=== PATIENT | female | born 1960 | race Caucasian/White ===

== ENCOUNTER → 2017-12-23 09:11 | Outpatient (CLI) | payer OTHER, MEDICARE, SELFPAY | PROVIDERS: Family Provider Family Medicine; PCP Family Medicine; Visit Provider Family Medicine | DX: M85.89 Other specified disorders of bone density and structure, multiple sites (principal) ==

== ENCOUNTER → 2018-02-23 10:23 | Outpatient (CLI) | payer OTHER, MEDICARE, SELFPAY ==
[2018-02-23 11:40] LABS: Calcium 9.7 mg/dL (8.5-10.1); Free T4 (Free Thyroxine) 1.41 ng/dl (0.76-1.46)
== END ==
PROVIDERS: Visit Provider Otolaryngology
DX: E03.0 Congenital hypothyroidism with diffuse goiter (principal)
CPT/HCPCS: 36415; 82310; 84439; 84443

== ENCOUNTER → 2018-04-02 08:08 | Outpatient (CLI) | payer OTHER, MEDICARE, SELFPAY ==
--- NOTE | 2018-04-02 08:10 | MM_ITS ---
MM Dig screening mamm BI w/CAD ORDERING PHYSICIAN : Bartolo Anne MD PATIENT AGE: 57 years GENDER: Female COMPARISON: January 2017, May INDICATION: ITS.REASON: Routine Mammogram Screening No hormones. No new complaints noncontributory family history TECHNIQUE: Standard CC and MLO images were obtained. R2 CAD reviewed. Additional nipple profile cc view and left breast MLO view included FINDINGS: Generalized fatty replacement Low-density breast bilaterally with no dominant mass nor suspicious calcification. No significant change since previous studies . No dominant mass. No suspicious calcification. No architectural distortion Bilateral follow-up in one year adequate. CAD computer review highlights no areas of concern either . IMPRESSION: Negative mammogram. Stable Low-density breast. Generalized fatty replacement with no new areas of concern BI-RADS Category: 1 Negative RECOMMENDED FOLLOW-UP: 1YR 1 YEAR FOLLOW-UP (A letter has been sent to the patient regarding results of the study.)
== END ==
PROVIDERS: Family Provider Family Medicine; PCP Family Medicine; Visit Provider Nurse Practitioner Obstetrics & Gynecology
DX: Z12.31 Encounter for screening mammogram for malignant neoplasm of breast (principal)
CPT/HCPCS: 77067

== ENCOUNTER → 2018-06-08 11:27 | Outpatient (POV) | payer OTHER, MEDICARE, SELFPAY | PROVIDERS: Visit Provider Nurse Practitioner Acute Care | DX: Z00.00 Encounter for general adult medical examination without abnormal findings (principal) ==

== ENCOUNTER → 2019-01-29 09:12 | Outpatient (CLI) | payer OTHER, MEDICARE, SELFPAY ==
--- NOTE | 2019-01-29 09:17 | NM_ITS ---
NM hepatobiliary w pharm HISTORY: ITS.REASON: RUQ PAIN ORDERING PHYSICIAN: ANAIS Gupta PATIENT AGE: 58 years COMPARISON: None DOSE: 8.72 MCI TC Choletec 3.1 MCG of cck FINDINGS: Homogeneous activity is present within the hepatic parenchyma. Activity is present in the gallbladder by 15 minutes. Activity is present in the small bowel by 10 minutes. The gallbladder ejection fraction is calculated to be 92% The patient did not report pain or other symptoms during CCK infusion. IMPRESSION: Unremarkable hepatobiliary scan and gallbladder ejection fraction. No evidence of common or cystic duct obstruction with normal gallbladder ejection fraction
--- NOTE | 2019-01-29 10:12 | HMH.ITSHM ---
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 [] metformin losartan crestor vit d levothyroxine diclofenac saxagliptin
== END ==
PROVIDERS: PCP Family Medicine; Visit Provider Physician Assistant
DX: R10.11 Right upper quadrant pain (principal)
CPT/HCPCS: 78227; A9537; J2805

== ENCOUNTER → 2019-02-02 15:40 | Observation (INO) ==
--- NOTE | 2019-02-01 13:52 | Progress Note ---
Internal Medicine - PN: Subj *Date: 02/01/19 *Time: 13:56 Interval history: Ms Galan is a 58 year old female with a history of DM, HTN, OA and obesity who presented to the office of [facility] today with severe abdominal pain, nausea and vomiting. She reported that the pain has been ongoing for 3 weeks. The pain extends across her entire abdomen. She has been on Zofran and levsin withut any relief. Her bowels did move this AM and she describes them as being loose. She has noted no blood in the emesis or stools. She went to the ER on 01/22/2019 and 01/25/2019 and received fluid boluses and IV Reglan, Pepcid, Toradol, and Zofran. She felt better after these visits for several hours but then the symptoms persisted. She has had the following imaging: CT of the abdomen IMPRESSION: Possible mild hepatic cirrhosis and there is mild splenomegaly. Uncomplicated cholelithiasis. No acute gallbladder inflammation however there could be some gallbladder sludge. Lumbar spine chronic intervertebral osteochondrosis and facet arthrosis with multiple levels of acquired central canal stenosis. GB US IMPRESSION: Possible small gallbladder polyp or mild sludge. No definite stones or acute inflammation. HIDA scan IMPRESSION: Unremarkable hepatobiliary scan and gallbladder ejection fraction. No evidence of common or cystic duct obstruction with normal gallbladder ejection fraction She has been unable to eat and has tried to continue with an adequate fluid intake. She has retained only the water. She has lost 9# in the past week. She was given a levsin in the office without improvement. She was also seen by Dr. Franco and the decision was made to admit her having failed OP treatent for IVF, GI consult and management of her symptoms. See H&P sent with patient from [facility] . Exam Vital signs and Labs for Last 24 Hours: Temp Pulse Resp BP Pulse Ox 98.0 F 73 18 137/63 100 02/01/19 13:30 02/01/19 13:30 02/01/19 13:30 02/01/19 13:30 02/01/19 13:30 I & O for Last 24 hours: Intake & Output 01/30/19 01/31/19 02/01/19 02/02/19 11:59 11:59 11:59 11:59 Weight 319 lb 9 oz Assessment and Plan (1) Acute abdominal pain Current visit: Yes Status: Acute Category: Medical Code(s): R10.9 - Unspecified abdominal pain (2) Nausea and vomiting Current visit: Yes Status: Acute Category: Medical Code(s): R11.2 - Nausea with vomiting, unspecified (3) Diabetes mellitus Current visit: Yes Status: Chronic Category: Medical Code(s): E11.9 - Type 2 diabetes mellitus without complications (4) HTN (hypertension) Current visit: Yes Status: Chronic Category: Medical Code(s): I10 - Essential (primary) hypertension (5) Hypothyroidism Current visit: Yes Status: Chronic Category: Medical Code(s): E03.9 - Hypothyroidism, unspecified - Assessment and plan all Dx Assessment and Plan for all problems:: IVF, GI consult, pain and nausea management. Will place pt on FSBS ac and HS but will not add sliding scale. Pt states she will not take insulin.
[2019-02-01 13:56] LABS: Albumin Level 3.8 gm/dL (3.4-5.0); Albumin/Globulin Ratio 0.8 (1.1-1.8); Anion Gap 16.7 mEq/L (5-15); Bilirubin,Total 1.1 mg/dL (0.2-1.0); Calcium 10.6 mg/dL (8.5-10.1); Globulin 4.7 gm/dl (1.3-3.2); Total Protein,Serum 8.5 gm/dL (6.4-8.2)
[2019-02-01 13:59] LABS: Basophils # 0.1 K/mm3 (0-0.2); Basophils % 0.8 % (0.1-2.0); Eosinophils # 0.2 K/mm3 (0.0-0.4); Eosinophils % 2.1 % (0.1-12.0); Hematocrit 44.8 % (37.0-47.0); Hemoglobin 14.4 g/dL (12.2-16.2); Lymphocytes # 2.2 K/mm3 (0.7-4.5); Lymphocytes % 30.4 % (10-50); Mean Platelet Volume 8.1 fl (7.4-10.4); Monocytes # 0.5 K/mm3 (0.1-1.0); Monocytes % 6.6 % (1.7-9.3); Neutrophils # 4.3 K/mm3 (1.8-7.8); Neutrophils % 60.2 % (37.0-80.0); Platelet Count 253 K/mm3 (142-424); Red Blood Count 4.62 M/mm3 (4.20-5.40); Red Cell Distribution Width 12.7 % (11.5-17.5); White Blood Count 7.1 K/mm3 (4.8-10.8)
[2019-02-01 14:26] LABS: Creatine Kinase 51 U/L (26-192)
--- NOTE | 2019-02-01 14:48 | Procedure Note ---
[facility] Procedure Note Procedure Note:: S: Mrs. Degroot is a 58-year-old female who complains of epigastric abdominal pain and discomfort that radiates down and across the abdomen. She has had moderate belching and some bloating. She reports some nausea and early satiety. This began 3 weeks ago. Formerly she had more moderate gassiness. The patient does report some loose stools that alternate with regular stools. She reports no heartburn, reflux or dysphagia. She has had no melena or hematochezia. She reports no heartburn or reflux. The patient did have a colonoscopy with me in August 2018. At that time, she had no abdominal pain or complaints. She did have some rectal bleeding that was hemorrhoidal. Her colonoscopy revealed no colon polyps but did show pandiverticulosis. The patient did have imaging studies and labs here at [facility]. Her CAT scan showed mild splenomegaly and mild hepatic cirrhosis. There was no gallbladder inflammation but possible gallstones. The patient's ultrasound showed a small gallbladder polyp or mild sludge. The patient subsequent HIDA scan was unremarkable with a normal gallbladder ejection fraction and no evidence of cystic or common bile duct obstruction. The patient's labs showed normal liver chemistries and normal pancreatic chemistries. O: Physical Examination: Gen.: The patient is a moderately obese female (BMI 50) individual in no acute distress HEENT: Normocephalic/atraumatic extraocular movements are intact anicteric Neck: Supple no lymphadenopathy Chest: Clear to auscultation Cardiovascular: Regular rate and rhythm Abdomen: Normoactive bowel sounds, soft, mild distention with tenderness in the epigastrium and bilateral lower quadrants, some palpable gas and stool present, no palpable ascites but some hepatosplenomegaly present Extremities: 1+ edema Labs AST 34, ALT 40, alkaline phosphatase 98, total bilirubin 1.1, amylase 23, lipase 182, creatinine 2.05 CAT scan with fatty liver and early cirrhosis without evidence of portal hypertension A/P: 1. Epigastric pain with dyspepsia. Certainly dyspepsia is accompanied with belching, fullness, nausea and early satiety. I am going to recommend an EGD within the next 5 to 7 days with me. I would like to go ahead and treat the dyspepsia with Reglan (promotility) and buspirone (treatment for visceral sensitivity). I will also place her on omeprazole. This does not appear to be gallbladder or biliary in origin and most likely represents nonulcer dyspepsia. I assume that she may have some gastropathy and some bowel fermentation driving this process. We have discussed dietary measures to follow. 2. Early cirrhosis. The patient's transaminases/alkaline phosphatase are normal but she does have a mildly elevated total bilirubin. She appears to be well compensated. I do feel that the etiology is most likely N[place]. She does have an outpatient appointment with Aure CUTLER in 2 weeks (February 15, 2019). I am going to obtain viral hepatitis serologies, autoimmune serologies, alpha-1 antitrypsin level, iron studies, ammonia level and hepatic fibrotic markers. The EGD upcoming will also evaluate for evidence of portal hypertension and esophageal varices.
[2019-02-02 07:18] LABS: Albumin/Globulin Ratio 0.8 (1.1-1.8); Anion Gap 12.4 mEq/L (5-15); Bilirubin,Total 0.9 mg/dL (0.2-1.0); Globulin 3.8 gm/dl (1.3-3.2); Total Protein,Serum 6.8 gm/dL (6.4-8.2)
--- NOTE | 2019-02-02 07:39 | Pharmacy Consult Notes ---
[facility] Pharmacy VTE Monitoring - Patient Demographics Admission date: 02/01/19 Report Date: 02/02/19 Time: 07:39 Allergies/Adverse Reactions: Patient Allergies ciprofloxacin Allergy (Mild, Verified 01/22/19 05:35) doxycycline [DOXYCYCLINE] Allergy (Unknown, Verified 01/22/19 05:35) Height: 1.7 m Weight: 146.709 kg Patient Problems: Current Active Problems (Updated 02/01/19 @ 14:12 by Gladis Urias APRN) Acute abdominal pain (Acute) Diabetes mellitus (Chronic) HTN (hypertension) (Chronic) Hypothyroidism (Chronic) Nausea and vomiting (Acute) - VTE Risk Labs: VTE Related Lab Results Hgb 14.4 g/dL (12.2-16.2) 02/01/19 13:30 Hct 44.8 % (37.0-47.0) 02/01/19 13:30 Plt Count 253 K/mm3 (142-424) 02/01/19 13:30 BUN 20 mg/dL (7-18) H 02/01/19 13:30 Creatinine 2.05 mg/dL (0.55-1.02) H 02/01/19 13:30 Estimated Creat Clear 30 mL/min (50-200) 02/01/19 13:30 VTE Score: 5 VTE Risk Level: Low Risk - Prophylaxis VTE Prophylaxis Ordered?: Yes Types of VTE Prophylaxis: TEDS Knee High Location of Applied Device: Bilateral Lower Extremeties - VTE Diagnosis Confirmed Treatment or plan recommended: Continue Current Treatment
[2019-02-02 07:42] LABS: Calcium 9.2 mg/dL (8.5-10.1)
--- NOTE | 2019-02-02 08:02 | Progress Note ---
Internal Medicine - PN: Subj *Date: 02/02/19 *Time: 07:59 Interval history: Patient feels so much better today. She has not had any more abdominal pain since 5 PM yesterday after starting the new meds as per Dr. Chavarria. She denies nausea and vomiting. She did clear liquids without any difficulty this morning. She is hungry and would like some food. Bowels have not moved. She is voiding QS. She did sleep during the night. She ambulates in the room without difficulty. She denies chest pain and shortness of breath. Laboratory Tests 02/02/19 06:05 Sodium 143 Potassium 3.4 L Chloride 107 Carbon Dioxide 27 Anion Gap 12.4 BUN 18 Creatinine 1.69 H Estimated GFR 31 L Glucose 128 H Calcium 9.2 D Total Bilirubin 0.9 AST 27 ALT 33 Alkaline Phosphatase 78 Exam Vital signs and Labs for Last 24 Hours: Temp Pulse Resp BP Pulse Ox 97.7 F 62 16 130/70 100 02/02/19 07:51 02/02/19 07:51 02/02/19 07:51 02/02/19 07:51 02/02/19 07:51 Laboratory Results - last 24 hr 02/01/19 13:30: WBC 7.1, RBC 4.62, Hgb 14.4, Hct 44.8, MCV 97.0, MCH 31.1, MCHC 32.0, RDW 12.7, Plt Count 253, MPV 8.1, Neut % (Auto) 60.2, Lymph % (Auto) 30.4, [place] % (Auto) 6.6, Eos % (Auto) 2.1, Baso % (Auto) 0.8, Neut # (Auto) 4.3, Lymph # (Auto) 2.2, [place] # (Auto) 0.5, Eos # (Auto) 0.2, Baso # (Auto) 0.1 02/01/19 13:30: Sodium 141, Potassium 3.7, Chloride 102, Carbon Dioxide 26, Anion Gap 16.7 H, BUN 20 H, Creatinine 2.05 H, Estimated Creat Clear 30, Estimated GFR 25 L, Est GFR ( Amer) 30 L, Glucose 147 H, Calcium 10.6 H, Total Bilirubin 1.1 H, AST 34, ALT 40, Alkaline Phosphatase 98, Total Protein 8.5 H, Albumin 3.8, Globulin 4.7 H, Albumin/Globulin Ratio 0.8 L 02/01/19 13:30: Total Creatine Kinase 51, CK-MB (CK-2) < 0.5, CK-MB (CK-2) Rel Index 1.0, Troponin I < 0.02 02/01/19 16:00: Ammonia < 10 L 02/01/19 16:00: Ferritin 491 H 02/01/19 16:30: POC Glucose 126 H 02/01/19 20:53: POC Glucose 96 02/02/19 06:02: POC Glucose 111 H 02/02/19 06:05: Sodium 143, Potassium 3.4 L, Chloride 107, Carbon Dioxide 27, Anion Gap 12.4, BUN 18, Creatinine 1.69 H, Estimated Creat Clear 36, Estimated GFR 31 L, Est GFR ( Amer) 38 L D, Glucose 128 H, Calcium 9.2 D, Total Bilirubin 0.9, AST 27, ALT 33, Alkaline Phosphatase 78, Total Protein 6.8, Albumin 3.0 L D, Globulin 3.8 H, Albumin/Globulin Ratio 0.8 L I & O for Last 24 hours: Intake & Output 01/30/19 01/31/19 02/01/19 02/02/19 11:59 11:59 11:59 11:59 Intake Total 1990 / 1990 Output Total 575 / 575 Balance 1416 / 1416 Weight 323 lb 7 oz Radiology Reports for the Last 24 Hours: 02/01/2019 acute abdomen series IMPRESSION: Chronic changes, no acute finding. - Constitutional no acute distress Comments: Sitting up in the chair and has completed her breakfast of clear liquids. She appears quite comfortable. - *Routine Respiratory Exam Present: CTA bilaterally (Anteriorly and posteriorly) - *Routine Cardiovascular Exam Present: RRR - *Routine Abdominal Exam Present: soft, normoactive bowel sounds, tenderness (Mild tenderness in all lower quadrants). Absent: distended, guarding - *Routine Extremities Exam Present: edema (Trace bilateral). Absent: calf tenderness - *Routine Neurological Exam Present: alert, oriented X3 Assessment and Plan (1) Acute abdominal pain Current visit: Yes Status: Acute Category: Medical Code(s): R10.9 - Unspecified abdominal pain (2) Nausea and vomiting Current visit: Yes Status: Acute Category: Medical Code(s): R11.2 - Nausea with vomiting, unspecified (3) Diabetes mellitus Current visit: Yes Status: Chronic Category: Medical Code(s): E11.9 - Type 2 diabetes mellitus without complications (4) HTN (hypertension) Current visit: Yes Status: Chronic Category: Medical Code(s): I10 - Essential (primary) hypertension (5) Hypothyroidism Current visit: Yes Status: Chronic Category: Medical Code(s): E03.9 - Hypothyroidism, unspecified
--- NOTE | 2019-02-02 22:04 | Discharge Summary ---
General - General Admission date:: 02/01/19 Discharge date: 02/02/19 HPI HPI: Ms Galan is a 58 year old female with a history of DM, HTN, OA and obesity who presented to the office of [facility] with severe abdominal pain, nausea and vomiting. She reported that the pain has been ongoing for 3 weeks. The pain extended across her entire abdomen. She had been on Zofran and levsin without any relief. Her bowels did move this AM and she described them as being loose. She had noted no blood in the emesis or stools. She went to the ER on 01/22/2019 and 01/25/2019 and received fluid boluses and IV Reglan, Pepcid, Toradol, and Zofran. She felt better after these visits for several hours but then the symptoms persisted. She has had the following imaging: CT of the abdomen IMPRESSION: Possible mild hepatic cirrhosis and there is mild splenomegaly. Uncomplicated cholelithiasis. No acute gallbladder inflammation however there could be some gallbladder sludge. Lumbar spine chronic intervertebral osteochondrosis and facet arthrosis with multiple levels of acquired central canal stenosis. GB US IMPRESSION: Possible small gallbladder polyp or mild sludge. No definite stones or acute inflammation. HIDA scan IMPRESSION: Unremarkable hepatobiliary scan and gallbladder ejection fraction. No evidence of common or cystic duct obstruction with normal gallbladder ejection fraction She had been unable to eat and had tried to continue with an adequate fluid intake. She had retained only the water. She had lost 9# in the past week. She was given a levsin in the office without improvement. She was also seen by Dr. Franco and the decision was made to admit her having failed OP treatent for IVF, GI consult and management of her symptoms. Hospital Course Hospital Course: The patient had an acute abdominal series which showed chronic changes but nothing acute. She was started on IV fluids, pain and nausea management, and GI was consulted. Dr. Chavarria saw the patient and felt she had epigastric pain with dyspepsia. He recommended an EGD within the next 5 to 7 days and to try and treat the dyspepsia with Reglan and buspirone. He also placed her on omeprazole. She also had early cirrhosis even with normal transaminases and a normal alkaline phosphatase. Her bilirubin was mildly elevated. He felt the etiology was most likely [place]. She already has an outpatient appointment scheduled with [facility] [place] [address] Chavarria went ahead and ordered viral hepatitis serologies, autoimmune serologies, alpha-1 antitrypsin level, iron studies, ammonia level, and hepatic fibrotic markers. He felt the EGD would also help evaluate for evidence of portal hypertension and esophageal varices. The patient was much more comfortable after receiving some medication. She was tolerating a diet, therefore it was advanced. She was started on potassium supplementation. She felt much better and wanted to be discharged home. She was stable to be discharged and will follow with Dr. Chavarria as well as in the office of A. Objective Vital signs: Temp Pulse Resp BP Pulse Ox 97.7 F 62 16 130/70 100 02/02/19 07:51 02/02/19 07:51 02/02/19 07:51 02/02/19 07:51 02/02/19 07:51 Narrative: - Constitutional no acute distress Comments: Sitting up in the chair and has completed her breakfast of clear liquids. She appears quite comfortable. - *Routine Respiratory Exam Present: CTA bilaterally (Anteriorly and posteriorly) - *Routine Cardiovascular Exam Present: RRR - *Routine Abdominal Exam Present: soft, normoactive bowel sounds, tenderness (Mild tenderness in all lower quadrants). Absent: distended, guarding - *Routine Extremities Exam Present: edema (Trace bilateral). Absent: calf tenderness - *Routine Neurological Exam Present: alert, oriented X3 Results Labs on day of discharge: Labs from last 24 hours 02/02/19 02/02/19 02/01/19 06:05 06:02 20:53 Sodium 143 Potassium 3.4 L Chloride 107 Carbon Dioxide 27 Anion Gap 12.4 BUN 18 Creatinine 1.69 H Estimated Creat Clear 36 Estimated GFR 31 L Est GFR ( Amer) 38 L D Glucose 128 H POC Glucose 111 H 96 Calcium 9.2 D Total Bilirubin 0.9 AST 27 ALT 33 Alkaline Phosphatase 78 Total Protein 6.8 Albumin 3.0 L D Globulin 3.8 H Albumin/Globulin Ratio 0.8 L DS: Diagnosis - Discharge Diagnosis (1) Acute abdominal pain Status: Acute (2) Nausea and vomiting Status: Acute (3) Diabetes mellitus Status: Chronic (4) HTN (hypertension) Status: Chronic (5) Hypothyroidism Status: Chronic Discharge Plan - Patient Discharge Instructions ACTIVITY: Continue current activity DIET: low fat, low cholesterol Patient Instructions: DI for Abdominal Pain-Adult - Follow up Plan Follow up with: Amina Franco MD [Primary Care Provider] - 1 week Unknown provider or service follow up:: 02/02/19 14:56 Needs follow-up scheduled with Dr. Chavarria, also Disposition: Home, Self-[facility] Medications: Home Medications Medication Instructions Recorded Confirmed Type coenzyme Q10 100 mg capsule 100 mg PO DAILY 04/02/18 02/01/19 History levothyroxine 125 mcg capsule 125 mcg PO DAILY 04/02/18 02/01/19 History saxagliptin 5 mg tablet 5 mg PO DAILY 04/02/18 02/01/19 History Rosuvastatin Calcium 10 mg PO HS 08/20/18 02/02/19 History Triamterene/Hydrochlorothiazid 1 tab PO DAILY 08/28/18 02/01/19 History [Maxzide-25 tablet] Cholecalciferol (Vitamin D3) 2,000 unit PO DAILY 02/01/19 02/01/19 History [Vitamin D3] Levocetirizine Dihydrochloride 5 mg PO HS 02/01/19 02/01/19 History [Xyzal] Buspirone HCl [Buspar 10mg tablet] 10 mg PO BID #60 tab 02/02/19 Rx Fluticasone Propionate 2 spry NS DAILY 02/02/19 02/02/19 History Losartan Potassium 100 mg PO DAILY 02/02/19 02/02/19 History Metformin HCl 850 mg PO BID 02/02/19 02/02/19 History Metoclopramide HCl [Reglan 5mg 5 mg PO ACHS 30 Days #120 tab 02/02/19 Rx Tablet] Pantoprazole Sodium [Protonix 40mg 40 mg PO DAILY 30 Days #30 tab 02/02/19 Rx tablet] Potassium Chloride [K-Tab ER 10 10 meq PO DAILY #30 tab 02/02/19 Rx mEq] Prescriptions/Medication Reconciliation: New Buspirone HCl [Buspar 10mg tablet] 10 mg PO BID #60 tab Potassium Chloride [K-Tab ER 10 mEq] 10 meq PO DAILY #30 tab Pantoprazole Sodium [Protonix 40mg tablet] 40 mg PO DAILY 30 Days #30 tab Metoclopramide HCl [Reglan 5mg Tablet] 5 mg PO ACHS 30 Days #120 tab Continued levothyroxine 125 mcg capsule 125 mcg PO DAILY saxagliptin 5 mg tablet 5 mg PO DAILY coenzyme Q10 100 mg capsule 100 mg PO DAILY Triamterene/Hydrochlorothiazid [Maxzide-25 tablet] 1 tab PO DAILY Metformin HCl 850 mg PO BID Losartan Potassium 100 mg PO DAILY Rosuvastatin Calcium 10 mg PO HS Cholecalciferol (Vitamin D3) [Vitamin D3] 2,000 unit PO DAILY Levocetirizine Dihydrochloride [Xyzal] 5 mg PO HS Fluticasone Propionate 2 spry NS DAILY Discontinued diclofenac sodium 75 mg tablet,delayed release 75 mg PO BID Hyoscyamine Sulfate [Levsin 0.125mg tablet] 0.125 mg PO Q4HP PRN PRN Reason: Indigestion
[2019-02-03 16:15] LABS: Anti-Smith Antibody <0.2 AI (0.0-0.9)
== END | disposition home or self-care (01) ==
LOC: 2ND
PROVIDERS: ADMIT Family Medicine; ATTEND Family Medicine
DX: E11.9 Type 2 diabetes mellitus without complications; Z88.1 Allergy status to other antibiotic agents; K74.60 Unspecified cirrhosis of liver; E03.9 Hypothyroidism, unspecified; R10.9 Unspecified abdominal pain; I10 Essential (primary) hypertension; E66.9 Obesity, unspecified
CPT/HCPCS: 36415; 74021; 74022; 80053; 81596; 82103; 82104; 82140; 82550; 82553; 82728; 82962; 83540; 83550; 84484; 85025; 86225; 86235; 86255; 86256; 93005; G0378

== ENCOUNTER → 2019-02-15 11:22 | Outpatient (POV) | payer OTHER, MEDICARE, SELFPAY | PROVIDERS: PCP Family Medicine; Referring Provider Family Medicine; Visit Provider Nurse Practitioner Family | DX: Z00.00 Encounter for general adult medical examination without abnormal findings (principal) ==

== ENCOUNTER → 2019-03-01 09:06 | Outpatient (CLI) | payer OTHER, MEDICARE, SELFPAY ==
--- NOTE | 2019-03-01 09:10 | XR_ITS ---
XR DEXA axial skeleton HISTORY: ITS.REASON: OSTEOPENIA ORDERING PHYSICIAN: Amina Franco MD PATIENT AGE: 58 years COMPARISON: None FINDINGS: The BMD measured at the Right femoral neck is 0.872 g/cm squared with a T score of -1.2. This is considered Osteopenic according to the World Health Organization criteria. Fracture risk is Moderate. Treatment is advised. IMPRESSION: Osteopenia with moderate fracture risk. Treatment is advised. Suggest follow-up exam February 2021
== END ==
PROVIDERS: PCP Family Medicine; Visit Provider Family Medicine
DX: M81.0 Age-related osteoporosis without current pathological fracture (principal)
CPT/HCPCS: 77080

== ENCOUNTER → 2019-04-29 09:03 | Outpatient (CLI) | payer OTHER, MEDICARE, SELFPAY ==
--- NOTE | 2019-04-29 09:10 | MM_ITS ---
PROCEDURE: MM DIG SCREENING MAMM BI W/CAD Patient Age:58Y CLINICAL INDICATION: routine screening mammogram. No hormones. No new complaints. Noncontributory family history COMPARISON: [facility] DIG MAMM-SCREEN [facility]ISEL from 06/06/2015 [facility] DIG MAMM-SCREEN [facility]EL W/CAD from 01/08/2017 [facility] MM Dig screening mamm BI w/CAD from 04/02/2018 TECHNIQUE: Standard CC and MLO images were obtained. R2 CAD reviewed. FINDINGS: Low-density breast with generalized fatty replacement bilaterally but no dominant mass or suspicious calcifications but no significant new findings. Bilateral follow-up 1 year recommended IMPRESSION: Stable bilateral mammogram. No new areas of concern. Fatty replacement/low-density breast Follow-up 1 year recommended BI-RAD Category: 1 Negative FOLLOW-UP: 1YR 1 Year Follow-up the the (A letter has been sent to the patient regarding results of the study.) Dictated by: James Mott MD 05/01/2019 11:11 Electronically signed by James Mott MD in [place] 05/01/2019 11:11
[2019-04-29 12:22] LABS: Calcium 10.3 mg/dL (8.5-10.1); Free T4 (Free Thyroxine) 1.38 ng/dl (0.76-1.46); Thyroid Stimulating Hormone 0.63 uIU/ml (0.358-3.740)
== END ==
PROVIDERS: Otolaryngology; PCP Family Medicine; Visit Provider Nurse Practitioner Obstetrics & Gynecology
DX: Z12.31 Encounter for screening mammogram for malignant neoplasm of breast (principal); E03.0 Congenital hypothyroidism with diffuse goiter
CPT/HCPCS: 36415; 77067; 82310; 84439; 84443

== ENCOUNTER → 2019-05-17 13:29 | Outpatient (CLI) | payer OTHER, MEDICARE, SELFPAY ==
--- NOTE | 2019-05-17 13:31 | CT_ITS ---
PROCEDURE: CT SINUS WO CON CLINICAL HISTORY: ACUTE MAXILLARY SINUSITIS COMPARISON: No exams were available for comparison TECHNIQUE: Axial images obtained with sagittal and coronal reformats. All CT scans at the facility use one or more dose reduction, viz: automated exposure control, ma/kV adjustment per patient size (including targeted exams where dose is matched to indication, i.e. head), or iterative reconstruction technique. FINDINGS: There is extensive sinusitis. There is complete opacification of the right aspect of the frontal sinus with moderate mucosal thickening of the central and left aspect of the frontal sinus. There is near complete opacification of the right ethmoid sinus with some aeration posteriorly. Complete opacification of the mid and anterior aspect of the left ethmoid sinus with aeration posteriorly. Mild mucosal thickening of the sphenoid sinus. Complete right maxillary opacification. Near complete opacification of the left maxillary sinus. Unremarkable mastoid sinuses. There is mild rightward nasal septal deviation. The orbits have an unremarkable appearance. The ostiomeatal complexes are occluded bilaterally. The TMJs are unremarkable. IMPRESSION: Pansinusitis as described above. Dictated by: Roney Ball MD 05/18/2019 07:27 Electronically signed by Roney Ball MD in [place] 05/18/2019 07:27
[2019-05-17 14:10] LABS: Basophils # 0.1 K/mm3 (0-0.2); Basophils % 0.9 % (0.1-2.0); Eosinophils # 0.3 K/mm3 (0.0-0.4); Eosinophils % 4.2 % (0.1-12.0); Hematocrit 42.8 % (37.0-47.0); Hemoglobin 13.8 g/dL (12.2-16.2); Lymphocytes # 2.4 K/mm3 (0.7-4.5); Lymphocytes % 37.8 % (10-50); Mean Corpuscular HGB Conc 32.3 g/dL (31.8-35.4); Mean Corpuscular Hemoglobin 30.9 pg (27.0-31.2); Mean Corpuscular Volume 95.7 fl (81-99); Monocytes # 0.4 K/mm3 (0.1-1.0); Monocytes % 6.3 % (1.7-9.3); Neutrophils # 3.2 K/mm3 (1.8-7.8); Neutrophils % 50.9 % (37.0-80.0); Platelet Count 210 K/mm3 (142-424); Red Blood Count 4.48 M/mm3 (4.20-5.40); Red Cell Distribution Width 13.1 % (11.5-17.5); White Blood Count 6.3 K/mm3 (4.8-10.8)
[2019-05-17 14:35] LABS: Erythrocyte Sedimentation Rate 26 mm/hr (0-30)
== END ==
PROVIDERS: PCP Family Medicine; Visit Provider Otolaryngology
DX: J01.81 Other acute recurrent sinusitis (principal); J01.01 Acute recurrent maxillary sinusitis
CPT/HCPCS: 36415; 70486; 85025; 85651

== ENCOUNTER → 2019-06-21 10:27 | Outpatient (POV) | payer OTHER, MEDICARE, SELFPAY | PROVIDERS: PCP Family Medicine; Visit Provider Nurse Practitioner Family | DX: Z00.00 Encounter for general adult medical examination without abnormal findings (principal) ==

== ENCOUNTER → 2019-07-29 08:29 | Outpatient (CLI) | payer OTHER, MEDICARE, SELFPAY ==
--- NOTE | 2019-07-29 08:36 | US_ITS ---
PROCEDURE: US ABDOMEN LIMITED CLINICAL INDICATION: CIRRHOSIS,RENAL INSUFFICIENCY,LOOSE STOOLS COMPARISON: RUQ US RUQ-(ABD LTD)1ORGAN/QUAD/FU from 10/10/2015 GB US gallbladder from 01/22/2019 FINDINGS: PANCREAS: Unremarkable. No obvious mass or abnormal fluid collection. No ductal dilatation LIVER: Somewhat coarse echogenic appearance of the liver. No focal liver lesions evident. No biliary dilatation. There is appropriate direction of blood flow within non dilated portal vein. Common bile duct is normal at 4 mm RIGHT KIDNEY: Unremarkable. Normal size and echogenicity. No hydronephrosis GALLBLADDER: Small focal area of increased echogenicity is noted within the gallbladder posteriorly. The gallbladder is slightly distended. This area of echogenicity does not shadow. IMPRESSION: 1. Possible small nonshadowing gallstone or polyp. 2. Coarse echogenicity of the liver nonspecific. 3. Overall no significant change Dictated by: Roney Ball MD 07/29/2019 15:36 Electronically signed by Roney Ball MD in [place] 07/29/2019 15:36
[2019-07-29 09:45] LABS: Basophils # 0.1 K/mm3 (0-0.2); Basophils % 1.2 % (0.1-2.0); Eosinophils # 0.3 K/mm3 (0.0-0.4); Hematocrit 44.9 % (37.0-47.0); Hemoglobin 14.7 g/dL (12.2-16.2); Lymphocytes # 2.5 K/mm3 (0.7-4.5); Lymphocytes % 47.9 % (10-50); Mean Corpuscular HGB Conc 32.7 g/dL (31.8-35.4); Mean Corpuscular Hemoglobin 30.7 pg (27.0-31.2); Mean Corpuscular Volume 94.1 fl (81-99); Mean Platelet Volume 8.1 fl (7.4-10.4); Monocytes # 0.4 K/mm3 (0.1-1.0); Monocytes % 7.7 % (1.7-9.3); Neutrophils % 38.2 % (37.0-80.0); Platelet Count 186 K/mm3 (142-424); Red Blood Count 4.77 M/mm3 (4.20-5.40); Red Cell Distribution Width 12.8 % (11.5-17.5); White Blood Count 5.3 K/mm3 (4.8-10.8)
[2019-07-29 10:09] LABS: INR 1.16 (0.9-1.1)
[2019-07-29 10:10] LABS: Ammonia < 10 umol/L (19-54)
[2019-07-29 11:22] LABS: Alanine Aminotransferase 27 U/L (12-78); Albumin Level 3.7 gm/dL (3.4-5.0); Albumin/Globulin Ratio 1.1 (1.1-1.8); Alkaline Phosphatase 85 U/L (46-116); Anion Gap 11.2 mEq/L (5-15); Aspartate Amino Transferase 21 U/L (15-37); Bilirubin,Total 0.9 mg/dL (0.2-1.0); Blood Urea Nitrogen 18 mg/dL (7-18); Calcium 9.9 mg/dL (8.5-10.1); Carbon Dioxide 27 mmol/L (21.0-32.0); Chloride 105 mmol/L (98-107); Estimated Glomerular Filt Rate 39 ml/min (>60); Ferritin 249 ng/mL (8-388); GFR (African American) 47 ML/MIN (>60); Globulin 3.5 gm/dl (1.3-3.2); Potassium 4.2 mmoL/L (3.5-5.1); Sodium 139 mmol/L (136-145); Total Protein,Serum 7.2 gm/dL (6.4-8.2)
[2019-07-29 11:32] LABS: Glucose 106 mg/dL (74-106)
[2019-07-30 06:51] LABS: AFP, Tumor Marker 4.1 ng/mL (0.0-8.3)
[2019-07-30 08:13] LABS: Iron 115 ug/dL (27-159); UIBC 151 ug/dL (131-425)
[2019-07-30 09:21] LABS: Iron Saturation 43 % (15-55)
== END ==
PROVIDERS: PCP Family Medicine; Visit Provider Nurse Practitioner Family
DX: K74.60 Unspecified cirrhosis of liver (principal); K75.81 Nonalcoholic steatohepatitis (NASH); K26.9 Duodenal ulcer, unspecified as acute or chronic, without hemorrhage or perforation; N28.9 Disorder of kidney and ureter, unspecified; R19.5 Other fecal abnormalities
CPT/HCPCS: 36415; 76705; 80053; 82105; 82140; 82728; 83540; 83550; 85025; 85610

== ENCOUNTER → 2019-09-27 09:00 | Outpatient (POV) | payer OTHER, MEDICARE, SELFPAY | PROVIDERS: PCP Nurse Practitioner Family; Visit Provider Nurse Practitioner Family | DX: Z00.00 Encounter for general adult medical examination without abnormal findings (principal) ==

== ENCOUNTER → 2020-03-27 07:41 | Outpatient (CLI) | payer OTHER, MEDICARE, SELFPAY ==
--- NOTE | 2020-03-27 07:46 | US_ITS ---
PROCEDURE: US ABDOMEN LIMITED CLINICAL INDICATION: CIRRHOSIS,DUIDENAL ULCER DISEASE COMPARISON: US US ABDOMEN LIMITED from 07/29/2019 FINDINGS: PANCREAS: Unremarkable. No obvious mass or abnormal fluid collection. No ductal dilatation LIVER: No focal liver lesions demonstrated. There is mild coarse echogenicity of the liver. No intrahepatic biliary ductal dilatation evident. There is appropriate direction of blood flow within a non dilated portal vein. There is mild hepatomegaly with liver measuring 25 cm in maximum transverse dimension. RIGHT KIDNEY: Unremarkable. Normal size and echogenicity. No hydronephrosis GALLBLADDER: Gallbladder is mildly distended. There are some small gallstones noted. Common bile duct is normal at 3 mm. IMPRESSION: 1. Distended gallbladder with cholelithiasis. 2. Hepatomegaly. There is some mild coarse echogenicity of the liver nonspecific but could be seen with hepatitis. Dictated by: Roney Ball MD 03/27/2020 11:03 Roney Ball MD in [place] 03/27/2020 11:03
[2020-03-27 09:12] LABS: Basophils # 0.1 K/mm3 (0-0.2); Eosinophils # 0.3 K/mm3 (0.0-0.4); Eosinophils % 3.9 % (0.1-12.0); Hematocrit 43.3 % (37.0-47.0); Hemoglobin 14.7 g/dL (12.2-16.2); Lymphocytes # 2.3 K/mm3 (0.7-4.5); Lymphocytes % 35.1 % (10-50); Mean Corpuscular Hemoglobin 31.2 pg (27.0-31.2); Mean Corpuscular Volume 91.9 fl (81-99); Mean Platelet Volume 7.5 fl (7.4-10.4); Monocytes # 0.4 K/mm3 (0.1-1.0); Monocytes % 6.3 % (1.7-9.3); Neutrophils # 3.6 K/mm3 (1.8-7.8); Neutrophils % 53.7 % (37.0-80.0); Platelet Count 206 K/mm3 (142-424); Red Blood Count 4.71 M/mm3 (4.20-5.40); Red Cell Distribution Width 12.8 % (11.5-17.5); White Blood Count 6.7 K/mm3 (4.8-10.8)
[2020-03-27 09:18] LABS: Chloride 102 mmol/L (98-107); Potassium 4.3 mmoL/L (3.5-5.1); Sodium 138 mmol/L (136-145)
[2020-03-27 09:21] LABS: Alanine Aminotransferase 20 U/L (12-78); Albumin/Globulin Ratio 1.3 (1.1-1.8); Alkaline Phosphatase 74 U/L (38-126); Anion Gap 10.3 mEq/L (5-15); Aspartate Amino Transferase 27 U/L (14-36); Bilirubin,Total 0.9 mg/dl (0.2-1.3); Blood Urea Nitrogen 14 mg/dl (7-17); Carbon Dioxide 30 mmol/L (22.0-30.0); Estimated Glomerular Filt Rate 51 ml/min (>60); GFR (African American) 62 ML/MIN (>60); Globulin 3.2 g/dL (1.3-3.2); Glucose 123 mg/dl (74-100); Total Protein,Serum 7.2 g/dl (6.3-8.2)
[2020-03-27 09:23] LABS: INR 1.12 (0.9-1.1); Prothrombin Time 11.4 seconds (9.4-11.8)
[2020-03-27 09:28] LABS: Ammonia < 9 umol/L (9-30)
[2020-03-27 09:30] LABS: Total Iron Binding Capacity 281 ug/dL (265-497)
[2020-03-27 09:57] LABS: Ferritin 116 ng/ml (11.1-264)
[2020-03-27 10:13] LABS: Iron 115 ug/dL (37-170)
[2020-03-29 06:40] LABS: AFP, Tumor Marker 5.3 ng/mL (0.0-8.3)
== END ==
PROVIDERS: PCP Nurse Practitioner Family; Visit Provider Nurse Practitioner Family
DX: K74.60 Unspecified cirrhosis of liver (principal); K26.9 Duodenal ulcer, unspecified as acute or chronic, without hemorrhage or perforation; K76.9 Liver disease, unspecified
CPT/HCPCS: 36415; 76705; 80053; 82105; 82140; 82728; 83540; 83550; 85025; 85610

== ENCOUNTER → 2020-04-17 09:09 | Outpatient (POV) | payer OTHER, MEDICARE, SELFPAY | PROVIDERS: Visit Provider Nurse Practitioner Family | DX: Z00.00 Encounter for general adult medical examination without abnormal findings (principal) ==

== ENCOUNTER → 2020-05-02 11:47 | Outpatient (CLI) | payer OTHER, MEDICARE, SELFPAY ==
[2020-05-02 13:43] LABS: Thyroid Stimulating Hormone 0.42 uIU/mL (0.465-4.68)
== END ==
PROVIDERS: Visit Provider Otolaryngology
DX: E03.0 Congenital hypothyroidism with diffuse goiter (principal)
CPT/HCPCS: 36415; 82310; 84439; 84443

== ENCOUNTER → 2020-06-06 09:16 | Outpatient (CLI) | payer OTHER, MEDICARE, SELFPAY ==
--- NOTE | 2020-06-06 09:16 | MM_ITS ---
PROCEDURE: MM DIG SCREENING MAMM BI W/CAD Digital Breast Tomosynthesis Included CLINICAL INDICATION: Routine Screening Mammogram There is no personal or family history of breast cancer. COMPARISON: MG DMSB DIG MAMM-SCREEN YISEL W/CAD from 01/08/2017 MG SCBI MM Dig screening mamm BI w/CAD from 04/02/2018 MG MM DIG SCREENING MAMM BI W/CAD from 04/29/2019 TECHNIQUE: Standard CC and MLO images and 3D Tomosynthesis was obtained. R2 CAD reviewed. FINDINGS: The breasts are composed primarily of fat with minimal scattered fibroglandular densities throughout each breast. There are couple of benign-appearing calcifications left breast. There are a couple of new somewhat irregular opacities upper outer quadrant right breast and upper central portion right breast both showing somewhat indeterminate appearance on leanne images. Recommend the patient return for spot compression views and possibly ultrasound if they proved to be true lesions. IMPRESSION: Fatty type breast parenchyma with possible new densities right breast BI-RAD Category: 0 Need Additional Imaging Evaluation FOLLOW-UP: IMM Immediate Follow-up Recommended (A letter has been sent to the patient regarding results of the study.) Dictated by: Dr. Justyn Gooden MD 06/08/2020 07:45 Dr. Justyn Gooden MD in [place] 06/08/2020 07:45
== END ==
PROVIDERS: PCP Family Medicine; Visit Provider Nurse Practitioner Obstetrics & Gynecology
DX: Z12.31 Encounter for screening mammogram for malignant neoplasm of breast (principal)
CPT/HCPCS: 77063; 77067

== ENCOUNTER → 2020-06-19 09:19 | Outpatient (CLI) | payer OTHER, MEDICARE, SELFPAY ==
--- NOTE | 2020-06-19 09:19 | US_ITS ---
PROCEDURE: US BREAST RT COMPLETE CLINICAL INDICATION: abnormal xmg of the Right breast COMPARISON: No exams were available for comparison FINDINGS: There is a tiny cystic lesion 11 o'clock position outer breast measuring 0.4 x0.5 cm. There is a small hypoechoic and likely cystic lesion with internal septations the 11 o'clock position outer breast measuring 0.6 by 0.5 cm. There is a questionable area of increased echogenicity 10 o'clock position outer breast likely representing simply normal appearing glandular elements. There is no suspicious solid lesions seen. There is a normal appearing node in the axilla. IMPRESSION: Benign-appearing lesions as described recommend the patient return for follow-up six-month right mammogram and ultrasound for continuing evaluation Dictated by: Dr. Justyn Gooden MD 06/27/2020 07:59 Dr. Justyn Gooden MD in [place] 06/27/2020 07:59
--- NOTE | 2020-06-19 10:08 | MM_ITS ---
PROCEDURE: MM DIG MAMM DX UNILAT RT CAD Digital Breast Tomosynthesis Included CLINICAL INDICATION: ABNORMAL SCREENING Possible new asymmetric densities COMPARISON: TECHNIQUE: Standard CC and MLO images and 3D Tomosynthesis was obtained. R2 CAD reviewed. FINDINGS: The patient returns for additional problem solving views right breast. The questionable lesions appears to at least partially press out on the spot MLO and 90 degree lateral views. The appear to represent tiny cluster of cysts on the spot CC views. Ultrasound performed the same date showed showed a tiny cystic-appearing lesion at the 11 O clock position. There is a possible hypoechoic lesion at the 10 o'clock position possibly representing a small lipoma or asymmetric glandular elements in this patient who has had recent weight loss. These lesions are likely benign but recommend the patient return for six-month follow-up right mammogram and ultrasound for continuing evaluation. IMPRESSION: Benign-appearing lesions as described above BI-RAD Category: 3 Probably Benign Finding Short Term Follow-up FOLLOW-UP: 6M 6Month Follow-up (A letter has been sent to the patient regarding results of the study.) Dictated by: Dr. Justyn Gooden MD 06/27/2020 07:55 Dr. Justyn Gooden MD in [place] 06/27/2020 07:55
== END ==
PROVIDERS: PCP Family Medicine; Visit Provider Nurse Practitioner Obstetrics & Gynecology
DX: R92.8 Other abnormal and inconclusive findings on diagnostic imaging of breast (principal)
CPT/HCPCS: 76641; 77061; 77065; G0279

== ENCOUNTER → 2020-10-02 08:45 | Outpatient (CLI) | payer OTHER, MEDICARE, SELFPAY ==
--- NOTE | 2020-10-02 08:48 | US_ITS ---
PROCEDURE: US ABDOMEN LIMITED CLINICAL INDICATION: CIRRHOSIS,DUODENAL ULCER DISEASE,NON-ALCOHOLIC STEATOHEPATIT COMPARISON: US US ABDOMEN LIMITED from 03/27/2020 FINDINGS: PANCREAS: Unremarkable. No obvious mass or abnormal fluid collection. No ductal dilatation LIVER: Liver margin is somewhat irregular suggesting cirrhosis. There is coarse echogenicity of the liver. No focal liver lesions are evident. There is appropriate blood flow direction within portal vein which is nondilated. RIGHT KIDNEY: Unremarkable. Normal size and echogenicity. No hydronephrosis GALLBLADDER: Gallbladder is somewhat distended at 4 cm with small gallstones noted. No gallbladder wall thickening, pericholecystic fluid, or biliary dilatation.. IMPRESSION: 1. Coarse echogenicity of the gallbladder with minimal irregularity of the surface suggesting cirrhosis. 2. Distended gallbladder with cholelithiasis Dictated by: Roney Ball MD 10/02/2020 10:44 Roney Ball MD in [place] 10/02/2020 10:44
[2020-10-02 10:29] LABS: Ammonia < 9 umol/L (9-30)
[2020-10-02 10:33] LABS: Basophils # 0.1 K/mm3 (0-0.2); Basophils % 0.8 % (0.1-2.0); Eosinophils # 0.4 K/mm3 (0.0-0.4); Eosinophils % 5.7 % (0.1-12.0); Hemoglobin 14.6 g/dL (12.2-16.2); Lymphocytes # 2.3 K/mm3 (0.7-4.5); Lymphocytes % 36.4 % (10-50); Mean Corpuscular HGB Conc 32.4 g/dL (31.8-35.4); Mean Corpuscular Hemoglobin 30.7 pg (27.0-31.2); Mean Corpuscular Volume 94.7 fl (81-99); Mean Platelet Volume 7.5 fl (7.4-10.4); Monocytes # 0.3 K/mm3 (0.1-1.0); Monocytes % 4.6 % (1.7-9.3); Neutrophils # 3.4 K/mm3 (1.8-7.8); Neutrophils % 52.6 % (37.0-80.0); Platelet Count 198 K/mm3 (142-424); Red Blood Count 4.75 M/mm3 (4.20-5.40); Red Cell Distribution Width 13.3 % (11.5-17.5); White Blood Count 6.4 K/mm3 (4.8-10.8)
[2020-10-02 10:47] LABS: Chloride 108 mmol/L (98-107)
[2020-10-02 10:48] LABS: Potassium 4.3 mmoL/L (3.5-5.1); Sodium 143 mmol/L (136-145)
[2020-10-02 10:50] LABS: Alanine Aminotransferase 22 U/L (12-78); Alkaline Phosphatase 99 U/L (38-126); Anion Gap 9.3 mEq/L (5-15); Aspartate Amino Transferase 24 U/L (14-36); Bilirubin,Total 0.8 mg/dl (0.2-1.3); Blood Urea Nitrogen 16 mg/dl (7-17); Carbon Dioxide 30 mmol/L (22.0-30.0); Estimated Glomerular Filt Rate 51 ml/min (>60); GFR (African American) 62 ML/MIN (>60); Iron 115 ug/dL (37-170)
[2020-10-02 10:51] LABS: Albumin Level 4.1 g/dl (3.5-5.0); Albumin/Globulin Ratio 1.4 (1.1-1.8); Calcium 11.1 mg/dl (8.4-10.2); Glucose 135 mg/dl (74-100); Total Protein,Serum 7.1 g/dl (6.3-8.2)
[2020-10-02 11:01] LABS: Total Iron Binding Capacity 274 ug/dL (265-497)
[2020-10-02 11:04] LABS: INR 1.01 (0.9-1.1); Prothrombin Time 11.9 seconds (9.4-11.8)
[2020-10-02 11:25] LABS: Ferritin 509 ng/ml (11.1-264)
[2020-10-03 15:43] LABS: AFP, Tumor Marker 4.8 ng/mL (0.0-8.3)
== END ==
PROVIDERS: PCP Family Medicine; Visit Provider Nurse Practitioner Family
DX: K74.60 Unspecified cirrhosis of liver (principal); K26.9 Duodenal ulcer, unspecified as acute or chronic, without hemorrhage or perforation; K75.81 Nonalcoholic steatohepatitis (NASH)
CPT/HCPCS: 36415; 76705; 80053; 82105; 82140; 82728; 83540; 83550; 85025; 85610

== ENCOUNTER → 2020-10-16 09:15 | Outpatient (POV) | payer OTHER, MEDICARE, SELFPAY | PROVIDERS: Visit Provider Nurse Practitioner Family | DX: Z00.00 Encounter for general adult medical examination without abnormal findings (principal) ==

== ENCOUNTER → 2020-10-30 10:59 | Outpatient (CLI) | payer OTHER, MEDICARE, SELFPAY ==
--- NOTE | 2020-10-30 11:07 | XR_ITS ---
PROCEDURE: XR SHOULDER LT MIN 2V CLINICAL INDICATION: BURSITIS OF LT DELTOID Left shoulder pain COMPARISON: CR XR CHEST 2V from 09/13/2019 FINDINGS: Osteoarthritic changes are present at the acromioclavicular joint with osteophyte formation. Osteoarthritis also noted at the glenohumeral joint. There is an area of sclerosis involving the left humeral head versus overlying glenoid region. This measures approximately 2 x 1 cm. No acute fracture or dislocation. 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 CT may provide further evaluation to determine the exact location and possible etiology. Dictated by: Roney Ball MD 10/30/2020 11:58 Roney Ball MD in [place] 10/30/2020 11:58
== END ==
PROVIDERS: PCP Family Medicine; Visit Provider Family Medicine
DX: M75.52 Bursitis of left shoulder (principal)
CPT/HCPCS: 73030

== ENCOUNTER → 2020-12-01 13:38 | Outpatient (CLI) | payer OTHER, MEDICARE, SELFPAY ==
--- NOTE | 2020-12-01 13:38 | MM_ITS ---
PROCEDURE INFORMATION: Exam: US Right Breast, Complete MG Right Diagnostic Breast Tomosynthesis Exam date and time: 12/01/2020 1:38 PM Age: 60 years old Clinical indication: Six-month follow-up right diagnostic mammogram and ultrasound was recommended on 06/19/2020 to assess stability of suspected right 11 o'clock cyst and 10 mm 11 o'clock suspected lipoma TECHNIQUE: Imaging protocol: Complete ultrasound of all four quadrants of the Right breast and the retroareolar regions, including ultrasound of the axillae when performed. Right Diagnostic tomosynthesis and 2D mammography including computer-aided detection (CAD) when performed. Unilateral or bilateral exam. COMPARISON: US BREAST RT COMPLETE 06/19/2020 9:42 AM Mammogram 06/19/2020, 06/06/20, 04/29/2019, 04/02/2018 FINDINGS: MAMMOGRAPHY: The breast tissue is almost entirely fatty. The previously described circumscribed 2-3 mm upper outer right breast middle 1/3 mass has generally benign features highly suggestive of a cyst or lymph node. No new mass, architectural distortion, or suspicious calcifications have developed to suggest malignancy. No axillary adenopathy. ULTRASOUND: Echogenic 18 mm right 10 o'clock and 5 mm right 10 o'clock horizontal circumscribed masses have features of benign lipomas. This corresponds well with the generally fatty pattern on the patient's mammogram. Along the 11 o'clock posterior right breast there is a superficial somewhat complex appearing hypoechoic mixed hyperechoic structure measuring 5 x 3 x 6 mm, unchanged. This has features of a cluster of tiny cysts. No suspicious solid or cystic mass is present. No axillary adenopathy IMPRESSION: Stable mammographic and sonographic appearance of upper outer right middle 1/3 mammographically apparent generally benign-appearing suspected cyst. Stable appearance of a 11 o'clock posterior right breast complex area thought to reflect a cluster of cysts measuring in total 6 mm. Continued diagnostic mammogram and ultrasound surveillance is recommended in 6 months at which time the patient will be due for bilateral screening mammogram Assessment: BI-RADS category 3: Probably benign
== END ==
PROVIDERS: PCP Family Medicine; Visit Provider Nurse Practitioner Obstetrics & Gynecology
DX: R92.8 Other abnormal and inconclusive findings on diagnostic imaging of breast (principal)
CPT/HCPCS: 76641; 77061; 77065; G0279

== ENCOUNTER → 2021-04-10 07:48 | Outpatient (CLI) | payer OTHER, MEDICARE, SELFPAY ==
--- NOTE | 2021-04-10 07:51 | US_ITS ---
PROCEDURE: US ABDOMEN LIMITED CLINICAL INDICATION: CIRRHOSIS,DYSPEPSIA,NON ALCOHOLIC STEATOHEPATITIS COMPARISON: CT ABDPELW CT abdomen pelvis w con from 01/22/2019 US US ABDOMEN LIMITED from 10/02/2020 FINDINGS: PANCREAS: Unremarkable. No obvious mass or abnormal fluid collection. No ductal dilatation LIVER: There is mild coarse echogenicity of the liver with minimal irregularity of the liver surface which may be seen with cirrhosis not significantly changed. There is appropriate direction of blood flow within a non dilated portal vein. These findings are not significantly changed RIGHT KIDNEY: Cortical thinning of the right kidney. No hydronephrosis or renal mass. GALLBLADDER: 2 small foci of increased echogenicity noted within the posterior aspect of the gallbladder and may be due to small stones small sludge balls. Common bile duct is within normal limits. IMPRESSION: Overall no change with coarse echogenicity of the liver with minimal irregularity of the liver surface suggesting cirrhosis Small nonshadowing stones versus small sludge balls of the gallbladder Dictated by: Roney Ball MD 04/10/2021 18:00 Roney Ball MD in [place] 04/10/2021 18:00
[2021-04-10 09:12] LABS: Ammonia < 9 umol/L (9-30)
[2021-04-10 09:18] LABS: Basophils # 0.1 K/mm3 (0-0.2); Basophils % 1.4 % (0.1-2.0); Eosinophils # 0.4 K/mm3 (0.0-0.4); Eosinophils % 6.2 % (0.1-12.0); Hematocrit 46.7 % (37.0-47.0); Hemoglobin 15.1 g/dL (12.2-16.2); Lymphocytes # 2.3 K/mm3 (0.7-4.5); Lymphocytes % 40.5 % (10-50); Mean Corpuscular HGB Conc 32.2 g/dL (31.8-35.4); Mean Corpuscular Hemoglobin 30.8 pg (27.0-31.2); Mean Corpuscular Volume 95.6 fl (81-99); Mean Platelet Volume 7.5 fl (7.4-10.4); Monocytes # 0.3 K/mm3 (0.1-1.0); Monocytes % 6.1 % (1.7-9.3); Neutrophils # 2.6 K/mm3 (1.8-7.8); Neutrophils % 45.8 % (37.0-80.0); Platelet Count 217 K/mm3 (142-424); Red Blood Count 4.89 M/mm3 (4.20-5.40); Red Cell Distribution Width 12.9 % (11.5-17.5); White Blood Count 5.6 K/mm3 (4.8-10.8)
[2021-04-10 09:26] LABS: Prothrombin Time 11.9 seconds (10.1-12.5)
[2021-04-10 09:30] LABS: INR 1.01 (0.9-1.1)
[2021-04-10 10:06] LABS: Chloride 106 mmol/L (98-107); Sodium 142 mmol/L (136-145)
[2021-04-10 10:07] LABS: Potassium 4.5 mmoL/L (3.5-5.1)
[2021-04-10 10:09] LABS: Alanine Aminotransferase 19 U/L (12-78); Alkaline Phosphatase 102 U/L (38-126); Anion Gap 13.5 mEq/L (5-15); Aspartate Amino Transferase 28 U/L (14-36); Bilirubin,Total 0.9 mg/dl (0.2-1.3); Blood Urea Nitrogen 18 mg/dl (7-17); Carbon Dioxide 27 mmol/L (22.0-30.0); Estimated Glomerular Filt Rate 46 ml/min (>60); GFR (African American) 56 ML/MIN (>60); Iron 137 ug/dL (37-170)
[2021-04-10 10:10] LABS: Albumin/Globulin Ratio 1.3 (1.1-1.8); Calcium 10.5 mg/dl (8.4-10.2); Globulin 3.1 g/dL (1.3-3.2); Glucose 136 mg/dl (74-100); Total Protein,Serum 7.1 g/dl (6.3-8.2)
[2021-04-10 10:20] LABS: Total Iron Binding Capacity 302 ug/dL (265-497)
[2021-04-10 10:46] LABS: Ferritin 159 ng/ml (11.1-264)
[2021-04-12 08:32] LABS: AFP, Tumor Marker 6.6 ng/mL (0.0-8.3)
== END ==
PROVIDERS: PCP Family Medicine; Visit Provider Nurse Practitioner Family
DX: K74.60 Unspecified cirrhosis of liver (principal); K75.81 Nonalcoholic steatohepatitis (NASH); K30 Functional dyspepsia
CPT/HCPCS: 36415; 76705; 80053; 82105; 82140; 82728; 83540; 83550; 85025; 85610

== ENCOUNTER → 2021-04-16 09:55 | Outpatient (POV) | payer OTHER, MEDICARE, SELFPAY | PROVIDERS: Visit Provider Nurse Practitioner Family | DX: Z00.00 Encounter for general adult medical examination without abnormal findings (principal) ==

== ENCOUNTER → 2021-05-08 11:23 | Outpatient (CLI) | payer OTHER, MEDICARE, SELFPAY ==
[2021-05-08 14:42] LABS: Free T4 (Free Thyroxine) 1.21 ng/dl (0.78-2.19)
[2021-05-08 14:57] LABS: Thyroid Stimulating Hormone 3.32 uIU/mL (0.465-4.68)
== END ==
PROVIDERS: Visit Provider Otolaryngology
DX: E03.9 Hypothyroidism, unspecified (principal); Z90.09 Acquired absence of other part of head and neck
CPT/HCPCS: 36415; 84439; 84443

== ENCOUNTER → 2021-06-08 13:36 | Outpatient (CLI) | payer OTHER, MEDICARE, SELFPAY ==
--- NOTE | 2021-06-08 13:37 | US_ITS ---
PROCEDURE: MM DIG MAMM BI DX W/CAD Digital Breast Tomosynthesis Included CLINICAL INDICATION: 6 month follow up COMPARISON: MG SCBI MM Dig screening mamm BI w/CAD from 04/02/2018 MG MM DIG SCREENING MAMM BI W/CAD from 04/29/2019 MG MM DIG SCREENING MAMM BI W/CAD from 06/06/2020 MG MM DIG MAMM DX UNILAT RT CAD from 06/19/2020 US US BREAST RT COMPLETE from 12/01/2020 MG MM DIG MAMM DX UNILAT RT CAD from 12/01/2020 US US BREAST RT COMPLETE from 06/08/2021 TECHNIQUE: Standard CC and MLO images and 3D Tomosynthesis was obtained. R2 CAD reviewed. FINDINGS: The breasts are almost entirely fatty. No malignant No suspicious appearing mass, malignant-appearing microcalcification, architectural distortion, or skin thickening. Benign-appearing calcifications and small bilateral benign-appearing stable nodular densities are once again noted. Right breast ultrasound: No malignant appearing mass. Small areas increased echogenicity once again noted and may be due to small lipomas. IMPRESSION: Benign findings. No evidence of malignancy. BI-RAD Category: 2 Benign Finding FOLLOW-UP: 1 YR 1 Year Follow-up (A letter has been sent to the patient regarding results of the study.) Dictated by: Roney Ball MD 06/18/2021 08:03 Roney Ball MD in [place] 06/18/2021 08:03
== END ==
PROVIDERS: PCP Family Medicine; Visit Provider Nurse Practitioner Obstetrics & Gynecology
DX: R92.8 Other abnormal and inconclusive findings on diagnostic imaging of breast (principal)
CPT/HCPCS: 76641; 77062; 77066; G0279

== ENCOUNTER 2021-08-29 09:40 | Emergency (ER) | payer OTHER, MEDICARE, SELFPAY ==
--- NOTE | 2021-08-29 10:34 | HMH.EDUTC ---
[facility] [place] Disposition Clinical Impression: Viral syndrome, Exposure to COVID-19 virus Disposition: Home, Self-Care Condition on Discharge: Good Instructions: Preventing the Spread of Coronavirus Discharge Instructions, DI for COVID-19 (Suspected or Confirmed ) Additional Instructions: Drink plenty of fluids. Take tylenol or ibuprofen for pain or fever. Take the medications as directed. Follow up with your regular doctor. GO TO THE ER FOR ANY WORSENING SYMPTOMS Quarantine until you know the results of your covid-19 test. Notify your school or workplace of your results and follow their instructions regarding return to work/school. The cough medication (promethazine dm) will make you drowsy, so don't drive or operate heavy machinery after taking it. Prescriptions: Albuterol Sulfate [Albuterol Sulfate Hfa] 2 puffs IH Q6HP PRN 30 Days #1 each PRN Reason: Shortness Of Breath Transmission Status: Pending to [facility] Promethazine/Dextromethorphan [Promethazine-Dm Syrup] 5 ml PO Q6HP PRN #240 ml PRN Reason: Cough Transmission Status: Pending to [facility] Ondansetron [Zofran 4mg ODT] 4 mg PO Q8HP PRN #20 tab PRN Reason: Nausea Transmission Status: Pending to [facility] Referrals: Amina Franco MD [Primary Care Provider] - Time of Disposition: 12:09 Medical Decision Making - Medical Records Medical records reviewed: No: I reviewed the patient's medical records. - Aaron Inquiry Pt receiving controlled substance: No Vital Signs: 08/29/21 10:52 Temperature 97.7 F Temperature Source Oral Pulse Rate [Left] 87 Respiratory Rate 20 Blood Pressure [Right Arm] 120/68 Blood Pressure Mean [Right Arm] 85 02 Sat by Pulse Oximetry 98 - Lab Data Lab results reviewed: Yes: I reviewed the patient's lab results. Orders (Tests/Meds): ORDERS Category Date Time Status Chest XR 2 view (NOT portable) [XR chest 2V] Stat Exams 08/29/21 11:35 Taken Covid-19 Nasal PCR ([facility]) Routine Lab 08/29/21 10:42 Received [facility] [place] HPI - General Stated complaint: covid symptoms, test Time Seen by Provider: 08/29/21 10:34 - History of Present Illness Provider Complaint: She states that she has been feeling bad for about 1 week now. She started out having body aches, low grade fever, chills, a dry cough, and fatigue. She has not been tested for covid-19 yet, but her daughter that lives with her and has similar symptoms tested positive for covid-19 2 days ago. She denies any chest pain. She does c/o cough and chest tightness, but she is not significantly short of breath. She is a diabetic. She has been vaccinated against covid-19 with the J&J vaccine. She has not had a booster shot though. She has had a flu shot too. - Related Data Home Medications Medication Instructions Recorded Confirmed coenzyme Q10 100 mg capsule 100 mg PO DAILY 04/02/18 05/14/21 saxagliptin 5 mg tablet 5 mg PO DAILY 04/02/18 05/14/21 Rosuvastatin Calcium 10 mg PO HS 08/20/18 05/14/21 Triamterene/Hydrochlorothiazid 1 tab PO DAILY 08/28/18 05/14/21 [Maxzide-25 tablet] Cholecalciferol (Vitamin D3) 2,000 unit PO DAILY 02/01/19 05/14/21 [Vitamin D3] Levocetirizine Dihydrochloride 5 mg PO HS 02/01/19 05/14/21 [Xyzal] Fluticasone Propionate 2 spry NS DAILY 02/02/19 05/14/21 Losartan Potassium 100 mg PO DAILY 02/02/19 05/14/21 Metformin HCl 850 mg PO BID 02/02/19 05/14/21 Buspirone HCl [Buspar 10mg 10 mg PO BID 02/08/19 05/14/21 tablet] Metoclopramide HCl [Reglan 5mg 5 mg PO ACHS 02/08/19 05/14/21 Tablet] Pantoprazole Sodium [Protonix 40mg 40 mg PO DAILY 02/08/19 05/14/21 tablet] Potassium Chloride [K-Tab ER 10 10 meq PO DAILY 02/08/19 05/14/21 mEq] levothyroxine 100 mcg tablet 100 mcg PO tab 05/09/20 05/14/21 nadolol 20 mg tablet 20 mg PO tab 05/09/20 05/14/21 Previous Rx's Medication Instructions Recorded fluticasone propionate 50 1 spray INTRANASAL DAILY #9.9
[2021-08-29 10:52] VITALS: BP 120/68; PULSE 87; RESP 20; TEMP 36.5; O2SAT 98; BMI 53.8
--- NOTE | 2021-08-29 11:35 | XR_ITS ---
FINAL REPORT CLINICAL HISTORY: cough, congestion. soa COMPARISON: September 13, 2019 FINDINGS: Two views of the chest were obtained. The heart size and pulmonary vascularity are within normal limits. The mediastinum is normal. There are worsening bilateral pulmonary opacities consistent with bilateral pneumonia. There is no pneumothorax. The bony thorax is intact. IMPRESSION: Worsening bilateral pneumonia that may represent viral pneumonia. Reviewed, Interpreted and Dictated by Chalo Thorne III, MD Transcribed by Adam Sanderson Authenticated by Chalo Thorne III, MD on 08/29/2021 12:37:57 PM [facility]
[2021-08-29 12:23] VITALS: BP 120/68; PULSE 87; RESP 20; TEMP 36.5
== END 2021-08-29 12:24 | disposition home or self-care (01) ==
PROVIDERS: Emergency Provider Nurse Practitioner Family; PCP Family Medicine
DX: U07.1 COVID-19 (principal); Z79.899 Other long term (current) drug therapy
CPT/HCPCS: 71046; 99202; C9803; G0463; U0003; U0005

== ENCOUNTER 2021-10-04 04:48 | Inpatient (IN) | payer OTHER, MEDICARE, SELFPAY ==
[2021-10-04] VITALS (27 sets, daily range): BP systolic 92–181; BP diastolic 49–106; PULSE 57–104; RESP 16–24; TEMP 36.4–37; O2SAT 90–98; BMI 54.8; BMI 55.9
--- NOTE | 2021-10-04 | IR_ITS ---
APPROVED REPORT Patient Location: Inpatient Special Events Coordinator: JUSTIN Avina RT (R) PROCEDURES Right femoral vein central access Catheter placement in the right main pulmonary artery Right main pulmonary artery selective angiogram Catheter placement in the left main pulmonary artery Left main pulmonary artery angiogram Right antegrade venogram of the right iliac vein Bare-metal coated stent deployment to the right common iliac vein INDICATION Bilateral pulmonary embolism, Acute RV strain with RV LV index of 1.2, Right common iliac vein perforation, Venous tear with retroperitoneal bleeding, Informed consent was obtained prior to the procedure. COMPLICATIONS Venous tear requiring bare-metal coated stent deployment TECHNIQUE 1% lidocaine used anesthetize the right groin the right femoral vein was accessed via the Salinger technique and a 7 Welsh sheath was placed in the right femoral vein. A [place] catheter was used to cannulate the pulmonary artery and right selective pulmonary artery angiography was performed. A 300 cm Choice PT extra-support wire was then placed through the [place] catheter and the [place] catheter was backed out. This allowed advancement of a 5 Welsh JR4 catheter. With the JR4 catheter in place an 035 wire was then placed and a pigtail catheter was advanced. Pigtail catheter was placed in the pulmonary arteries were selective angiography was performed. Following this a wire was left into the pulmonary artery and an exchange technique was performed. The 7 Welsh sheath was upsized to a 12 Welsh sheath. While the 12 Welsh sheath was advancing it snagged the right common iliac artery where venography demonstrated a significant sized tear. Protamine was given to reverse the heparin which had already been administered and 2 balloons 1 8 mm in diameter and the other a 10 mm diameter balloon were simultaneously deployed to occlude the perforation. This procedure was repeated several times however the tear was too large therefore a 10 mm x 37 mm bare-metal coated stent was deployed at 20 kirit. Following this an additional wire was placed through the stent and two 8 mm x 40 mm balloons were deployed at 7 kirit each creating an intraluminal diameter of 1.6 mm. This stopped the bleeding and completely seal the perforation. At this point the apparatus was removed and a Z stitch was placed in the right groin along with removal of the 12 Welsh sheath. Patient tolerated the procedure well with no hemodynamic compromise. She was transferred to postop putting her stable edition IMPRESSION Bilateral pulmonary emboli Large common iliac venous sheath tear which required drug-coated stenting to stop the retroperitoneal bleeding PLAN 1. Restart anticoagulation 2. Medical management for the pulmonary arteries 3. Due to patient's very large size it was decided not to bring her back to the [facility] for repeat procedure. Patient weighs nearly 400 pounds and it was felt the vascular access and potential for vascular complication exceeded the potential benefits of the embolectomy. 4. Xarelto 15 mg p.o. twice daily for 3 weeks followed by 20 mg orally indefinitely 5. Weight loss advised Electronically signed by : Lev Trujillo MD 10/05/2021 12:52:31
--- NOTE | 2021-10-04 05:05 | ECG_ITS ---
APPROVED REPORT Exam: Resting ECG HR:98 bpm ECG Measurements Heart Rate 98 AXES KS 176 P 57 QRSd 100 QRS -38 QT 345 T 67 QTc 400 Conclusion SINUS RHYTHM LEFT AXIS DEVIATION [QRS AXIS < -30] PATTERN CONSISTENT WITH PULMONARY DISEASE ABNORMAL ECG UNCONFIRMED REPORT Electronically signed by : Gabe Wagner MD 10/05/2021 15:05:05
--- NOTE | 2021-10-04 05:05 | XR_ITS ---
PROCEDURE INFORMATION: Exam: XR Chest Exam date and time: 10/04/2021 5:05 AM Age: 60 years old Clinical indication: Cough and shortness of breath; Patient HX: Second hand smoke exposure, HX covid 1 month ago; Additional info: Cough, SOA TECHNIQUE: Imaging protocol: XR of the chest. Views: 1 view. COMPARISON: CR XR CHEST 2V 08/29/2021 11:34 AM FINDINGS: Lungs: No focal airspace disease. Pleural spaces: Unremarkable. No pleural effusion. No pneumothorax. Heart/Mediastinum: Cardiomediastinal silhouette is within normal limits. Bones/joints: Unremarkable. IMPRESSION: No acute cardiopulmonary abnormality.
--- NOTE | 2021-10-04 05:09 | HMH.EDGENADL ---
ED Disposition Clinical Impression: Pulmonary embolism Qualifiers: Pulmonary embolism type: other Chronicity: acute Acute cor pulmonale presence: with acute cor pulmonale Qualified Code(s): I26.09 - Other pulmonary embolism with acute cor pulmonale Disposition: Admitted As Inpatient Condition on Discharge: Fair - Critical Care Critical Care Time: Yes Attestation: On , the high probability of a clinically significant, sudden or life threatening deterioration of the following system(s) required my full and direct attention, intervention and personal management. The time I documented below is in addition to time spent performing reported procedures but includes the following listed in this critical care notation. Total Critical Care Time: 30 Vital system(s) involved:: Circulatory Failure, Respiratory Failure My critical care processes included: Assessment & monitoring of V/S, Initial and Re-exams, Data Review/Interpretation, Coordinating Care, Medication Orders and management, Documentation Medical Decision Making - Medical Records Medical records reviewed: Yes: I reviewed the patient's medical records. - Aaron Inquiry Pt receiving controlled substance: No Vital Signs: 10/04/21 04:51 10/04/21 06:31 Temperature 98.4 F Temperature Source Oral Pulse Rate 86 Pulse Rate [Apical] 98 H Respiratory Rate 24 Blood Pressure 124/77 Blood Pressure [Right Arm] 181/106 H Blood Pressure Mean [Right Arm] 131 Blood Pressure Source [Right Arm] Automatic Cuff Blood Pressure Position [Right Arm] Sitting 02 Sat by Pulse Oximetry 96 97 Oxygen Delivery Method Room Air Room Air - Lab Data Lab Results 10/04/21 05:00: WBC 8.1, RBC 4.86, Hgb 15.2, Hct 47.8 H, MCV 98.3, MCH 31.2, MCHC 31.8, RDW 13.8, Plt Count 201, MPV 8.5, Neut % (Auto) 46.4, Lymph % (Auto) 39.1, [place] % (Auto) 7.1, Eos % (Auto) 5.6, Baso % (Auto) 1.9, Neut # (Auto) 3.8, Lymph # (Auto) 3.2, [place] # (Auto) 0.6, Eos # (Auto) 0.5 H, Baso # (Auto) 0.2 10/04/21 05:00: D-Dimer 3.38 H 10/04/21 05:00: Sodium 139, Potassium 3.8, Chloride 107, Carbon Dioxide 26, Anion Gap 9.8, BUN 21 H, Creatinine 1.00, Estimated Creat Clear 60, Estimated GFR 57 L, Est GFR ( Amer) 69, Glucose 201 H, Calcium 10.2, Total Bilirubin 0.9, AST 28, ALT 25, Alkaline Phosphatase 105, Troponin I 0.04 H, NT-Pro-B Natriuret Pep 255 H, Total Protein 7.5, Albumin 4.3, Globulin 3.2, Albumin/Globulin Ratio 1.3 10/04/21 05:00: PT 11.5, INR 1.02, APTT 26.4 Result diagrams: 10/04/21 05:00 10/04/21 05:00 Orders (Tests/Meds): ED MEDICATIONS Generic Name Dose Route Start Last Admin Trade Name Freq PRN Reason Stop Dose Admin Heparin Sodium/Dextrose 500 mls @ 16 mls/hr 10/04/21 07:15 10/04/21 07:21 Heparin 25,000 Units In D5w 500ml Premix IV 11/03/21 07:14 Not Given .Q25H JANINE 800 UNITS/HR Sodium Chloride 1,000 mls @ 999 mls/hr 10/04/21 07:30 Sod Chlor 0.9% 1000ml Bag IV 10/04/21 08:30 .Q1H1M [facility] Ondansetron HCl 4 mg 10/04/21 05:58 Ondansetron 4mg/2ml Vial IV 11/03/21 05:57 Q6 PRN Nausea And Vomiting Discontinued Medications Generic Name Dose Route Start Last Admin Trade Name Freq PRN Reason Stop Dose Admin Albuterol/Ipratropium 3 ml 10/04/21 05:07 10/04/21 06:05 Ipratropium/Albuterol 3 Ml Neb IH 10/04/21 05:08 3 ml ONCE ONE Administration Enoxaparin Sodium 150 mg 10/04/21 07:00 10/04/21 07:12 Enoxaparin 100mg/Ml Syringe SQ 11/03/21 06:59 Not Given Q12H JANINE Heparin Sodium (Porcine) 15,000 unit 10/04/21 07:12 10/04/21 07:22 Heparin 1,000 Units/Ml 10ml Vial ([employer]) IV 10/04/21 07:13 15,000 unit ONCE ONE Administration Iopamidol 70 ml 10/04/21 06:28 10/04/21 06:30 Iopamidol-370 (76%);100ml Bottle IV 10/04/21 06:29 70 ml ONCE ONE Administration Sodium Chloride 50 ml 10/04/21 06:28 10/04/21 06:30 0.9 % Sodium Chloride 50 Ml Vial IV 10/04/21 06:29 50 ml ONCE ONE Administration Sodium Chlo
[2021-10-04 05:15] LABS: Basophils # 0.2 K/mm3 (0-0.2); Basophils % 1.9 % (0.1-2.0); Eosinophils # 0.5 K/mm3 (0.0-0.4); Eosinophils % 5.6 % (0.1-12.0); Hematocrit 47.8 % (37.0-47.0); Hemoglobin 15.2 g/dL (12.2-16.2); Lymphocytes # 3.2 K/mm3 (0.7-4.5); Lymphocytes % 39.1 % (10-50); Mean Corpuscular HGB Conc 31.8 g/dL (31.8-35.4); Mean Corpuscular Hemoglobin 31.2 pg (27.0-31.2); Mean Corpuscular Volume 98.3 fl (81-99); Mean Platelet Volume 8.5 fl (7.4-10.4); Monocytes # 0.6 K/mm3 (0.1-1.0); Monocytes % 7.1 % (1.7-9.3); Neutrophils # 3.8 K/mm3 (1.8-7.8); Neutrophils % 46.4 % (37.0-80.0); Platelet Count 201 K/mm3 (142-424); Red Blood Count 4.86 M/mm3 (4.20-5.40); Red Cell Distribution Width 13.8 % (11.5-17.5); White Blood Count 8.1 K/mm3 (4.8-10.8)
[2021-10-04 05:21] LABS: Alanine Aminotransferase 25 U/L (12-78); Albumin Level 4.3 g/dl (3.5-5.0); Albumin/Globulin Ratio 1.3 (1.1-1.8); Alkaline Phosphatase 105 U/L (38-126); Anion Gap 9.8 mEq/L (5-15); Aspartate Amino Transferase 28 U/L (14-36); Bilirubin,Total 0.9 mg/dl (0.2-1.3); Blood Urea Nitrogen 21 mg/dl (7-17); Calcium 10.2 mg/dl (8.4-10.2); Carbon Dioxide 26 mmol/L (22.0-30.0); Chloride 107 mmol/L (98-107); Creatinine Clearance Estimated 60 mL/min (50-200); Estimated Glomerular Filt Rate 57 ml/min (>60); GFR (African American) 69 ML/MIN (>60); Globulin 3.2 g/dL (1.3-3.2); Glucose 201 mg/dl (74-100); Potassium 3.8 mmoL/L (3.5-5.1); Sodium 139 mmol/L (136-145); Total Protein,Serum 7.5 g/dl (6.3-8.2)
[2021-10-04 05:25] LABS: D-Dimer 3.38 ug/mL (0.0-0.5)
[2021-10-04 05:34] LABS: NT Pro Brain Natriuretic Pep. 255 pg/mL (0-125); Troponin I 0.04 ng/ml (0.00-0.034)
--- NOTE | 2021-10-04 05:57 | CT_ITS ---
PROCEDURE INFORMATION: Exam: CTA Chest With Contrast Exam date and time: 10/04/2021 5:57 AM Age: 60 years old Clinical indication: Shortness of breath; Patient HX: HX covid 1 month ago, second hand smoke exposure; Additional info: SOA, + d dimer TECHNIQUE: Imaging protocol: Computed tomographic angiography of the chest with contrast. 3D rendering (Not supervised by radiologist): MIP and/or 3D reconstructed images were created by the technologist. Radiation optimization: All CT scans at this facility use at least one of these dose optimization techniques: automated exposure control; mA and/or kV adjustment per patient size (includes targeted exams where dose is matched to clinical indication); or iterative reconstruction. Contrast material: ISOVUE 370; Contrast volume: 70 ml; Contrast route: INTRAVENOUS (IV); COMPARISON: CR XR CHEST PORTABLE 10/04/2021 5:08 AM FINDINGS: Pulmonary arteries: Positive for pulmonary emboli involving the distal right and left main pulmonary arteries with extension into lobar and segmental branches bilaterally. Aorta: Unremarkable. No aortic aneurysm. No aortic dissection. Lungs: Faint ground-glass opacities in the periphery of the lungs. Pleural spaces: Unremarkable. No pneumothorax. No pleural effusion. Heart: Unremarkable. No cardiomegaly. No pericardial effusion. Heart RV/LV ratio: The RV to LV ratio is elevated at 1.2. Lymph nodes: Unremarkable. No enlarged lymph nodes. Bones/joints: Unremarkable. No acute fracture. Soft tissues: Unremarkable. IMPRESSION: 1. Positive for pulmonary emboli involving the distal right and left main pulmonary arteries with extension into lobar and segmental branches bilaterally. There is some mild dilation of the right ventricle, which could suggest right heart strain. 2. Some faint ground-glass opacities in the periphery of the lungs may reflect residual pneumonia.
--- NOTE | 2021-10-04 07:02 | PC.NURSE ---
CHIVO JETER speaking with Dr. Franco
--- NOTE | 2021-10-04 07:10 | PC.NURSE ---
House made aware to get bed
[2021-10-04 07:27] LABS: Activated Partial Thrombo Time 26.4 seconds (22.8-30.6); INR 1.02 (0.9-1.1); Prothrombin Time 11.5 seconds (10.1-12.5)
--- NOTE | 2021-10-04 07:30 | PC.NURSE ---
pt and family updated on plan of care. pt changed into hospital gown and placed on cardiac monitorl
--- NOTE | 2021-10-04 08:01 | PC.NURSE ---
ANAIS Martin with Cardiology here at bedside
--- NOTE | 2021-10-04 08:03 | PC.NURSE ---
aixa ferro at bedside
--- NOTE | 2021-10-04 08:17 | PC.NURSE ---
ANAIS Mclean with [facility] is at bedside
--- NOTE | 2021-10-04 08:20 | HMH.CNCARD ---
History of Present Illness Consult date: 10/04/21 Requesting physician: Amina Franco Chief complaint: Bilateral PE Additional Medical History:: 1. Morbid obesity 2. Diabetes mellitus, treated for about 10 years 3. Covid infection, 08/2021 4. Bilateral pulmonary emboli, 10/03/2021 5. Strong family history of coronary artery disease in father with bypass in his late 40s 6. Secondhand smoke exposure 7. History of rectal bleeding with colonoscopy evaluation pertinent for hemorrhoids 8. Hypertension 9. Cirrhosis of the liver felt related to arthritis medication History of present illness: 60-year-old female with past medical history of obesity, diabetes, hypertension, obesity, fatty liver disease is presented to the ED with shortness of breath, intermittent episodes of chest pain. Patient states that beginning last night she began to experience shortness of breath, this is worse when she got up to use the bathroom overnight. States that her shortness of breath is worse with exertion. Currently she denies fevers any chest pain. No prior history of CAD, coronary angiography, CHF. No prior history of DVT or PE. She is not currently on any blood thinners. She denies abdominal pain. Admits to mild nausea, no vomiting episodes. No diarrhea or change in her bowel habits. She is still urinating appropriately. States that her legs are chronically swollen, has previously had cellulitis in her right leg. No worsening erythema or tenderness over her bilateral calfs. She used her albuterol inhaler prior to arrival, no other medications. Patient is speaking full sentences, vital signs are stable, oxygen saturation 96% on room air. Of note patient was Covid positive on 08/29/2021. The above per CHIVO Lea MD Patient confirms events as noted above. She does relate some right lower extremity swelling and discomfort over the last 1 to 2 weeks. She does admit to sedentary lifestyle. Left shoulder area discomfort overnight but feels that is due to her arthritis. No prior history of DVT or PE. EKG is sinus with LAD. No evidence of S1Q3T3 at this time. Mildly tachcycardic with conversation. O2 sat is 93% on room air. CTA of chest as below: 1. Positive for pulmonary emboli involving the distal right and left main pulmonary arteries with extension into lobar and segmental branches bilaterally. There is some mild dilation of the right ventricle, which could suggest right heart strain. 2. Some faint ground-glass opacities in the periphery of the lungs may reflect residual pneumonia. RV to LV ratio noted to be 1.2. [facility] History Medical History: Reports:: Diabetes Mellitus Type 2, Hyperlipidemia, Hypertension Denies:: Anxiety, Cancer, Depression, Diabetes Mellitus Type 1, Heart Murmur, Internal Pacemaker, Lung Disease, Migraine, MRSA, Seizures *Have you ever received a pneumonia vaccine?: No *Have you received a flu vaccine this season?: Yes Other Medical History: Reports: Arthritis, Hypothyroidism. Denies: Blood Transfusion Reaction Other Surgeries: Yes: Thyroidectomy, Tubal Ligation. No: Pacemaker Amputation: No Fractures: No - *Social History Smoking Status: Former smoker Tobacco Type: cigarettes Alcohol Intake: never Substance Use Type: denies use *Occupational Status:: other Housing: house Household Members: spouse, family *Travel in the last 8 weeks: Inside the [place] - Psychiatric History Pschychiatric History:: Denies:: Anxiety, Depression Family Hx:: Cancer, Diabetes, Heart Attack, Stroke, Kidney Disease, Coronary Artery Disease, Hypertension, Hyperlipidemia, Asthma Meds Home Medications Medication Instructions Recorded Confirmed Type coenzyme Q10 100 mg capsule 100 mg PO DAILY 04/02/18 10/04/21 History Rosuvastatin Calcium 10 mg PO HS 08/20/18 10/04/21 History Cholecalciferol (Vitamin D3) 2,000 unit PO DAILY 02/01/19 10/04/21 History [Vitamin D3] Levocetirizine Dihydrochloride 5 mg PO HS 02/01/19
[2021-10-04 08:31] LABS: Coronavirus 19, PCR Not Detected (NotDetected); Influenza A, PCR Not Detected (NotDetected); Influenza B, PCR Not Detected (NotDetected)
[2021-10-04 08:40] LABS: Troponin I 0.06 ng/ml (0.00-0.034)
--- NOTE | 2021-10-04 08:42 | CA_ITS ---
FINAL REPORT CLINICAL HISTORY: .HT 5'7 WT 350 R pressure bandage on R groin due to pulmonary embolectomy, SOB, PE, post-covid 09/18 very limited exam due to extreme body habitus FINDINGS: Color Doppler, duplex Doppler and compression sonography of the bilateral lower extremities was performed. Exam is significantly limited due to patient body habitus. There is superficial venous thrombosis in the right lesser saphenous vein. There is no deep venous thrombosis in the right popliteal and peroneal veins. Remaining right lower extremity veins are not visualized. No deep venous thrombosis is seen in the left popliteal vein, posterior tibial vein or greater saphenous vein. Remaining left lower extremity veins are not visualized. IMPRESSION: Significantly limited exam secondary to patient body habitus. Superficial thrombosis in the right lesser saphenous vein. Reviewed, Interpreted and Dictated by Chalo Thorne III, MD Transcribed by Wen Eduardo Authenticated by Chalo Thorne III, MD on 10/04/2021 03:22:05 PM [facility]
--- NOTE | 2021-10-04 09:42 | HMH.HP ---
*Admission Date: 10/04/21 *Chief complaint: shortness of breath *History of present illness: 60-year-old female with past medical history of obesity, diabetes, hypertension, obesity, fatty liver disease is presented to the ED with shortness of breath, intermittent episodes of chest pain. Patient states that beginning last night she began to experience shortness of breath, this is worse when she got up to use the bathroom overnight. States that her shortness of breath is worse with exertion. Currently she denies fevers any chest pain. No prior history of CAD, coronary angiography, CHF. No prior history of DVT or PE. She is not currently on any blood thinners. She denies abdominal pain. Admits to mild nausea, no vomiting episodes. No diarrhea or change in her bowel habits. She is still urinating appropriately. States that her legs are chronically swollen, has previously had cellulitis in her right leg. No worsening erythema or tenderness over her bilateral calfs. She used her albuterol inhaler prior to arrival, no other medications. Patient is speaking full sentences, vital signs are stable, oxygen saturation 96% on room air. Of note patient was Covid positive on 08/29/2021. (The above per Dr. Carson, MD) The patient does states she has had some swelling in her legs over the past few weeks and her calf muscles have been tender. She has had some mild chest tightness along with the shortness of breath, which has gotten progressively worse. A CTA was done in the emergency room and was positive for pulmonary emboli involving the distal right and left main pulmonary arteries with extension into lobar and segmental branches bilaterally. There was some mild dilation of the right ventricle suggesting right heart strain and faint groundglass opacities in the periphery of the lungs reflecting a residual pneumonia. She will be admitted and cardiology will be consulted. [facility] History I have reviewed the patient's past medical history: Yes Medical History: Reports:: Diabetes Mellitus Type 2, Hyperlipidemia, Hypertension Denies:: Anxiety, Cancer, Depression, Diabetes Mellitus Type 1, Heart Murmur, Internal Pacemaker, Lung Disease, Migraine, MRSA, Seizures *Have you ever received a pneumonia vaccine?: No *Have you received a flu vaccine this season?: Yes Other Medical History: Reports: Arthritis, Hypothyroidism, Other (Fatty liver). Denies: Blood Transfusion Reaction Other Surgeries: Yes: Colonoscopy, Thyroidectomy, Tubal Ligation. No: Pacemaker Amputation: No Fractures: No - *Social History Smoking Status: Former smoker Tobacco Type: cigarettes Alcohol Intake: never Substance Use Type: denies use *Occupational Status:: other Housing: house Household Members: spouse, family *Travel in the last 8 weeks: Inside the [place] - Psychiatric History Pschychiatric History:: Denies:: Anxiety, Depression Family Hx:: Cancer, Diabetes, Heart Attack, Stroke, Kidney Disease, Coronary Artery Disease, Hypertension, Hyperlipidemia, Asthma Review of Systems - Constitutional Reports weakness, Denies chills, Denies fever(s) - Eyes Denies blurry vision, Denies double vision - ENT Reports dizziness, Reports nasal congestion, Denies headache(s), Denies sore throat - *Cardiovascular Reports chest pain, Reports shortness of breath, Reports shortness of breath with activity - *Respiratory Reports chest congestion, Reports cough - *Gastrointestinal Denies abdominal pain, Denies loose stools, Denies nausea, Denies vomiting - *Genitourinary Denies difficulty urinating, Denies painful urination - *Musculoskeletal Denies joint pain - *Neurologic Reports dizziness, Reports weakness, Denies headache(s) Meds Home Medications Medication Instructions Recorded Confirmed Type coenzyme Q10 100 mg capsule 100 mg PO DAILY 04/02/18 10/04/21 History Rosuvastatin Calcium 10 mg PO HS 08/20/18 10/04/21 History Cholecalciferol (Vitamin D3) 2,000 uni
--- NOTE | 2021-10-04 09:47 | HMH.PHAVTE ---
[facility] Pharmacy VTE Monitoring - Patient Demographics Admission date: 10/04/21 Report Date: 10/04/21 Time: 09:47 Allergies/Adverse Reactions: Patient Allergies ciprofloxacin Allergy (Mild, Verified 05/14/21 13:36) doxycycline [DOXYCYCLINE] Allergy (Unknown, Verified 05/14/21 13:36) Height: 1.7 m Weight: 158.757 kg Patient Problems: Current Active Problems Diabetes mellitus (Chronic) HTN (hypertension) (Chronic) Exposure to COVID-19 virus (Acute) Pulmonary embolism (Acute) Pulmonary embolism, bilateral (Acute) Obesity, morbid, BMI 50 or higher (Chronic) - VTE Risk Labs: VTE Related Lab Results Hgb 15.2 g/dL (12.2-16.2) 10/04/21 05:00 Hct 47.8 % (37.0-47.0) H 10/04/21 05:00 Plt Count 201 K/mm3 (142-424) 10/04/21 05:00 PT 11.5 seconds (10.1-12.5) 10/04/21 05:00 INR 1.02 (0.9-1.1) 10/04/21 05:00 APTT 26.4 seconds (22.8-30.6) 10/04/21 05:00 BUN 21 mg/dl (7-17) H 10/04/21 05:00 Creatinine 1.00 mg/dl (0.52-1.04) 10/04/21 05:00 Estimated Creat Clear 60 mL/min (50-200) 10/04/21 05:00 Clinical Trial Participant: No - Prophylaxis VTE Prophylaxis Ordered?: Yes Types of VTE Prophylaxis: TEDS Knee High
--- NOTE | 2021-10-04 10:07 | HMH.PHAINT ---
home medication list verified using list from [facility] office and outpatient pharmacy
--- NOTE | 2021-10-04 11:36 | HMH.PHAHEP ---
[facility] Pharmacy Heparin Dosing - Demographic Data Admission date:: 10/04/21 Date: 10/04/21 Time: 11:36 Allergies/Adverse Reactions: Allergies Allergy/AdvReac Type Severity Reaction Status Date / Time ciprofloxacin Allergy Mild Verified 05/14/21 13:36 doxycycline [DOXYCYCLINE] Allergy Unknown Verified 05/14/21 13:36 Height: 1.7 m Weight: 158.757 kg (ENTERED IN ER.) - Indication Medication therapy:: Heparin Patient Problems: Current Active Problems Diabetes mellitus (Chronic) HTN (hypertension) (Chronic) Exposure to COVID-19 virus (Acute) Pulmonary embolism (Acute) Pulmonary embolism, bilateral (Acute) Pulmonary embolism with acute cor pulmonale (Acute) Obesity, morbid, BMI 50 or higher (Chronic) CVA?: No Bleeding problem?: No Kidney disease?: No [place]?: No Desired PTT range:: Other Comments:: TARGET PTT 50-75 BILATERAL PE - Labs Anticoagulation Lab Results:: 10/04/21 05:00 Hgb 15.2 Hct 47.8 H Plt Count 201 - Monitoring Dose Monitor 1 Date: 10/04/21 Time: 05:00 PTT Result:: PTT 26.4 Infusion Rate:: HEPARIN 39085 UNITS AT 0722 IN ER. HEPARIN 3000 UNITS AT 0905 IN CATHLAB HEPARIN 82254 UNITS AT 1106 IN CATHLAB. STARTED HEPARIN DRIP AT 22 ML/HR (1100 UNITS/HR). WILL HAVE PTT DRAWN AT 1500. Dose Monitor 2 Date: 10/04/21 Time: 16:00 PTT Result:: PTT 142.3 Infusion Rate:: CONTINUE WITH HEPARIN 1100 UNITS PER HOUR AND REDRAW AT 1800. Dose Monitor 3 Date: 10/04/21 Time: 18:40 PTT Result:: PTT 65.5 Infusion Rate:: SUSPECT HEPARIN BOLUS DOSES ARE CLEARING NOW. RECOMMEND INCREASING HEPARIN DOSE TO 1300 UNIT/HR AND RECHECK AT 2100. Dose Monitor 4 Date: 10/04/21 Time: 21:00 PTT Result:: PTT 35.0 Infusion Rate:: PATIENT'S HEPARIN DRIP STOPPED AND PROTAMINE 30 MG GIVEN DUE TO HEMATOMA. - Core Measures Is INR > or = 2 at discharge?: No Most Recent Labs:: Laboratory Results - last 24 hr 10/04/21 05:00: WBC 8.1, RBC 4.86, Hgb 15.2, Hct 47.8 H, MCV 98.3, MCH 31.2, MCHC 31.8, RDW 13.8, Plt Count 201, MPV 8.5, Neut % (Auto) 46.4, Lymph % (Auto) 39.1, [place] % (Auto) 7.1, Eos % (Auto) 5.6, Baso % (Auto) 1.9, Neut # (Auto) 3.8, Lymph # (Auto) 3.2, [place] # (Auto) 0.6, Eos # (Auto) 0.5 H, Baso # (Auto) 0.2 10/04/21 05:00: D-Dimer 3.38 H 10/04/21 05:00: Sodium 139, Potassium 3.8, Chloride 107, Carbon Dioxide 26, Anion Gap 9.8, BUN 21 H, Creatinine 1.00, Estimated Creat Clear 60, Estimated GFR 57 L, Est GFR ( Amer) 69, Glucose 201 H, Calcium 10.2, Total Bilirubin 0.9, AST 28, ALT 25, Alkaline Phosphatase 105, Troponin I 0.04 H, NT-Pro-B Natriuret Pep 255 H, Total Protein 7.5, Albumin 4.3, Globulin 3.2, Albumin/Globulin Ratio 1.3 10/04/21 05:00: PT 11.5, INR 1.02, APTT 26.4 10/04/21 05:00: Blood Type Confirm O Positive 10/04/21 05:27: SARS-CoV-2 (PCR) Not detected, Influenza A Untype (PCR) Not detected, Influenza Type B (PCR) Not detected 10/04/21 08:06: Troponin I 0.06 H 10/04/21 10:15: Blood Type O Positive, Antibody Screen Negative, Crossmatch (AHG) See Detail Were Heparin and Warfarin started on the same day?: No If not, why?: HEPARIN DRIP STOPPED.
[2021-10-04 11:54] LABS: Appearance,Urine CLEAR (Clear); Bilirubin,Urine Negative (Negative); Blood, Urine Negative (Negative); Color,Urine YELLOW (Yellow); Glucose,Urine (UA) Negative (Negative); Ketones,Urine Negative (Negative); Leukocyte Esterase,Urine Negative (Negative); Microscopic, Urine URINE MICROSCOPIC (MICROSCOPIC); Nitrate,Urine Negative (Negative); Protein,Urine Negative (Negative); Urobilinogen,Urine 0.2 EU/dl (0.2)
[2021-10-04 12:10] LABS: RBC,Urine Occasional #/hpf (0-3)
--- NOTE | 2021-10-04 13:00 | PC.NURSE ---
right groin z stitch removed. No bleeding noted. Area cleaned with alcohol and dressed with telfa and tegaderm.
[2021-10-04 14:36] LABS: CATHL Activated Clotting Time 298 SEC (74-125)
[2021-10-04 16:56] LABS: PTT Heparin (inpatient only) 142.3 Seconds (23.6-34.0)
--- NOTE | 2021-10-04 16:56 | PC.NURSE ---
received call from lab reporting PTT 142.3. Name and verified. [facility] pharmacist paged.
--- NOTE | 2021-10-04 17:11 | PC.NURSE ---
after 10min of being on the phone with [facility] pharmacist and him not knowing what to do with the Heparin gtt, I contacted Amina Peace for assistance. Amina Peace ordered to repeat PTT @ 1800 and to let him know what the result is. PTT order entered on his behalf.
[2021-10-04 19:07] LABS: PTT Heparin (inpatient only) 65.5 Seconds (23.6-34.0)
--- NOTE | 2021-10-04 19:14 | PC.NURSE ---
received call from lab reporting PTT 65.5. Name and verified. Contacted Amina Peace, who ordered to increase Heparin gtt to 1300units/hr and to recheck PTT @ 2100 tonight. Order for next PTT entered.
[2021-10-04 22:08] LABS: POC Glucose,Bedside 253 (70-110)
[2021-10-05] VITALS (11 sets, daily range): BP systolic 100–155; BP diastolic 51–92; PULSE 80–96; RESP 20–24; TEMP 36.4–37.5; O2SAT 93–97; BMI 56.5; BMI 56.4
--- NOTE | 2021-10-05 02:57 | PC.NURSE ---
Pt noted to have hematoma to (R) femoral cath site early in shift. Pressure applied and MD Trujillo was consulted. New orders received to apply pressure to above and below site for 30 minutes. Stop heparin gtt and give Protamine 30 mg IV. Orders carried out. supervisor coil springs was present in room. Pt c/o discomfort while applying pressure. Morphine and zofran was administered. She is no longer c/o discomfort. VSS. Hematoma has improved. Will continue to monitor.
--- NOTE | 2021-10-05 08:38 | P.PN_ITS ---
Internal Medicine - PN: Subj *Date: 10/05/21 *Time: 08:38 Interval history: Patient states she is feeling about the same today. She has had to lay flat since yesterday in preparation for her procedure this morning. A vessel was torn in her groin yesterday during the embolectomy and the vessel had to be repaired and the procedure was stopped. She has a significant hematoma on the right side. Exam Vital signs and Labs for Last 24 Hours: Temp Pulse Resp BP Pulse Ox 97.5 F L 94 H 21 137/92 H 93 L 10/05/21 08:08 10/05/21 06:00 10/05/21 06:00 10/05/21 06:00 10/05/21 06:00 Laboratory Results - last 24 hr 10/04/21 05:00: Blood Type Confirm O Positive 10/04/21 05:27: SARS-CoV-2 (PCR) Not detected, Influenza A Untype (PCR) Not detected, Influenza Type B (PCR) Not detected 10/04/21 08:06: Troponin I 0.06 H 10/04/21 10:15: Blood Type O Positive, Antibody Screen Negative, Crossmatch (AHG) See Detail 10/04/21 10:23: Activated Clotting Time 298 H* 10/04/21 11:15: Urine Color Yellow, Urine Appearance Clear, Urine pH 5.0, Ur Specific [place] 1.010, Urine Protein Negative, Urine Glucose (UA) Negative, Urine Ketones Negative, Urine Blood Negative, Urine Nitrate Negative, Urine Bilirubin Negative, Urine Urobilinogen 0.2, Ur Leukocyte Esterase Negative, Urine RBC Occasional, Urine WBC None, Ur Squamous Epith Cells None, Urine Bacteria None 10/04/21 16:21: APTT 142.3 H* 10/04/21 18:40: APTT 65.5 H* 10/04/21 21:00: APTT 35.0 H 10/04/21 22:00: POC Glucose 253 H I & O for Last 24 hours: Intake & Output 10/02/21 10/03/21 10/04/21 10/05/21 11:59 11:59 11:59 11:59 Intake Total 1280 / 1280 Output Total 1275 / 1275 Balance Weight 349 lb 15.988 oz 360 lb - Constitutional no acute distress - *Routine Respiratory Exam Present: CTA bilaterally - *Routine Cardiovascular Exam Present: RRR - *Routine Abdominal Exam Present: soft, normoactive bowel sounds. Absent: tenderness - *Routine Extremities Exam Absent: cyanosis, clubbing, edema - *Routine Skin Exam Comments: Large hematoma of the right groin - *Routine Neurological Exam Present: alert, oriented X3 Assessment and Plan (1) Pulmonary embolism, bilateral Status: Acute Category: Medical Code(s): I26.99 - Other pulmonary embolism without acute cor pulmonale (2) Exposure to COVID-19 virus Status: Acute Category: Medical Code(s): Z20.822 - Contact with and (suspected) exposure to COVID-19 (3) Diabetes mellitus Status: Chronic Category: Medical Code(s): E11.9 - Type 2 diabetes mellitus without complications (4) HTN (hypertension) Status: Chronic Category: Medical Code(s): I10 - Essential (primary) hypertension (5) Obesity, morbid, BMI 50 or higher Problem details: BMI 58 Status: Chronic Category: Medical Code(s): E66.01 - Morbid (severe) obesity due to excess calories - Assessment and plan all Dx Assessment and Plan for all problems:: Patient is lying flat this morning in preparation for embolectomy. Cardiology to follow.
--- NOTE | 2021-10-05 08:54 | HMH.ACPN2 ---
Internal Medicine - PN: Subj *Date: 10/05/21 *Time: 08:54 Interval history: She was able to receive thrombectomy yesterday. She is a difficult access. She subsequently had a hematoma in the right groin during the night which required discontinuation of heparin, ice application, and sandbag application. It seems the plan is to try to reapproach her for embolectomy this morning. She remains comfortable not short of breath. She has home medications that need to be restarted. Exam Vital signs and Labs for Last 24 Hours: Temp Pulse Resp BP Pulse Ox 97.5 F L 94 H 21 137/92 H 93 L 10/05/21 08:08 10/05/21 06:00 10/05/21 06:00 10/05/21 06:00 10/05/21 06:00 Laboratory Results - last 24 hr 10/04/21 05:00: Blood Type Confirm O Positive 10/04/21 05:27: SARS-CoV-2 (PCR) Not detected, Influenza A Untype (PCR) Not detected, Influenza Type B (PCR) Not detected 10/04/21 08:06: Troponin I 0.06 H 10/04/21 10:15: Blood Type O Positive, Antibody Screen Negative, Crossmatch (AHG) See Detail 10/04/21 10:23: Activated Clotting Time 298 H* 10/04/21 11:15: Urine Color Yellow, Urine Appearance Clear, Urine pH 5.0, Ur Specific [place] 1.010, Urine Protein Negative, Urine Glucose (UA) Negative, Urine Ketones Negative, Urine Blood Negative, Urine Nitrate Negative, Urine Bilirubin Negative, Urine Urobilinogen 0.2, Ur Leukocyte Esterase Negative, Urine RBC Occasional, Urine WBC None, Ur Squamous Epith Cells None, Urine Bacteria None 10/04/21 16:21: APTT 142.3 H* 10/04/21 18:40: APTT 65.5 H* 10/04/21 21:00: APTT 35.0 H 10/04/21 22:00: POC Glucose 253 H I & O for Last 24 hours: Intake & Output 10/02/21 10/03/21 10/04/21 10/05/21 11:59 11:59 11:59 11:59 Intake Total 1280 / 1280 Output Total 1275 / 1275 Balance 5 / 5 Weight 349 lb 15.988 oz 360 lb - *Routine HEENT Exam Head: Present: normocephalic Eye: Present: EOMI, PERRL ENT: Present: mucous membranes moist - *Routine Neck Exam Present: supple. Absent: lymphadenopathy - *Routine Respiratory Exam Present: CTA bilaterally - *Routine Cardiovascular Exam Present: RRR - *Routine Abdominal Exam Present: soft, normoactive bowel sounds, obese. Absent: tenderness Comments: There is a prominent hematoma of the right groin area but it is not is large as I expected to see it. Heparin has not been yet restarted. - *Routine Extremities Exam Present: edema. Absent: cyanosis, clubbing - *Routine Skin Exam Present: warm, ecchymosis (Groin). Absent: rash - *Routine Neurological Exam Present: alert, oriented X3 Assessment and Plan (1) Pulmonary embolism with acute cor pulmonale Status: Acute Category: Medical Code(s): I26.09 - Other pulmonary embolism with acute cor pulmonale (2) Pulmonary embolism, bilateral Status: Acute Category: Medical Code(s): I26.99 - Other pulmonary embolism without acute cor pulmonale (3) Exposure to COVID-19 virus Status: Acute Category: Medical Code(s): Z20.822 - Contact with and (suspected) exposure to COVID-19 (4) Diabetes mellitus Status: Chronic Category: Medical Code(s): E11.9 - Type 2 diabetes mellitus without complications (5) HTN (hypertension) Status: Chronic Category: Medical Code(s): I10 - Essential (primary) hypertension (6) Obesity, morbid, BMI 50 or higher Problem details: BMI 58 Status: Chronic Category: Medical Code(s): E66.01 - Morbid (severe) obesity due to excess calories - Assessment and plan all Dx Assessment and Plan for all problems:: Home medications will be ordered. Further plans per the emboli are in the hands of cardiology.
[2021-10-05 08:56] LABS: Basophils # 0.2 K/mm3 (0-0.2); Eosinophils # 0.2 K/mm3 (0.0-0.4); Eosinophils % 1.1 % (0.1-12.0); Hematocrit 35.8 % (37.0-47.0); Hemoglobin 11.6 g/dL (12.2-16.2); Lymphocytes # 3.3 K/mm3 (0.7-4.5); Lymphocytes % 19.8 % (10-50); Mean Corpuscular HGB Conc 32.5 g/dL (31.8-35.4); Mean Corpuscular Hemoglobin 31.7 pg (27.0-31.2); Mean Corpuscular Volume 97.8 fl (81-99); Mean Platelet Volume 8.8 fl (7.4-10.4); Monocytes # 1.1 K/mm3 (0.1-1.0); Monocytes % 6.4 % (1.7-9.3); Neutrophils # 12.1 K/mm3 (1.8-7.8); Neutrophils % 71.8 % (37.0-80.0); Platelet Count 205 K/mm3 (142-424); Red Blood Count 3.66 M/mm3 (4.20-5.40); Red Cell Distribution Width 14.4 % (11.5-17.5); White Blood Count 16.9 K/mm3 (4.8-10.8)
[2021-10-05 09:10] LABS: Anion Gap 11.3 mEq/L (5-15); Blood Urea Nitrogen 19 mg/dl (7-17); Calcium 9.4 mg/dl (8.4-10.2); Carbon Dioxide 19 mmol/L (22.0-30.0); Chloride 109 mmol/L (98-107); Creatinine Clearance Estimated 57 mL/min (50-200); Estimated Glomerular Filt Rate 57 ml/min (>60); GFR (African American) 69 ML/MIN (>60); Glucose 203 mg/dl (74-100); Potassium 5.3 mmoL/L (3.5-5.1); Sodium 134 mmol/L (136-145)
--- NOTE | 2021-10-05 09:14 | P.PN_ITS ---
Subjective Date: 10/05/21 Time: 09:14 Principal diagnosis: Bilateral pulmonary emboli Interval history: 60-year-old white female in bed in no acute distress at this time. Some shivering/shaking noted but patient states that can be normal for her. Some tenderness to right groin palpation. Hematoma noted. A.m. blood work has not returned yet. Heparin was discontinued overnight due to bleeding in the groin area with a dose of protamine given. Discussed with Dr. Trujillo, and light of the pulmonary emboli will restart heparin and obtain a right groin ultrasound. Tentative plan is to proceed with pulmonary embolectomy via the left groin if hemoglobin stable and no further significant bleeding in the right groin. Update: 12:00 PM Right groin ultrasound reveals large hematoma. Report pending. Hgb has dropped from [address] Trujillo discussed with pt and . Will not perform procedure but recommend starting Xarelto 15 mg BID and monitoring for 24-48 hrs before discharging home. OK to sit up and begin moving around some. Exam Vital signs and Labs for Last 24 Hours: Temp Pulse Resp BP Pulse Ox 97.5 F L 94 H 21 137/92 H 93 L 10/05/21 08:08 10/05/21 06:00 10/05/21 06:00 10/05/21 06:00 10/05/21 06:00 Laboratory Results - last 24 hr 10/04/21 05:00: Blood Type Confirm O Positive 10/04/21 10:15: Blood Type O Positive, Antibody Screen Negative, Crossmatch (AHG) See Detail 10/04/21 10:23: Activated Clotting Time 298 H* 10/04/21 11:15: Urine Color Yellow, Urine Appearance Clear, Urine pH 5.0, Ur Specific [place] 1.010, Urine Protein Negative, Urine Glucose (UA) Negative, Urine Ketones Negative, Urine Blood Negative, Urine Nitrate Negative, Urine Bilirubin Negative, Urine Urobilinogen 0.2, Ur Leukocyte Esterase Negative, Urine RBC Occasional, Urine WBC None, Ur Squamous Epith Cells None, Urine Bacteria None 10/04/21 16:21: APTT 142.3 H* 10/04/21 18:40: APTT 65.5 H* 10/04/21 21:00: APTT 35.0 H 10/04/21 22:00: POC Glucose 253 H I & O for Last 24 hours: Intake & Output 10/02/21 10/03/21 10/04/21 10/05/21 11:59 11:59 11:59 11:59 Intake Total 1280 / 1280 Output Total 1275 / 1275 Balance Weight 349 lb 15.988 oz 360 lb - Constitutional no acute distress - *Routine Respiratory Exam Present: CTA bilaterally - *Routine Cardiovascular Exam Present: RRR Progress Note: A&P (1) Pulmonary embolism with acute cor pulmonale Status: Acute (2) Pulmonary embolism, bilateral Status: Acute (3) Exposure to COVID-19 virus Status: Acute (4) Diabetes mellitus Status: Chronic (5) HTN (hypertension) Status: Chronic (6) Obesity, morbid, BMI 50 or higher Problem details: BMI 58 Status: Chronic Assessment and Plan for All Diagnoses:: 1. Bilateral pulmonary emboli with acute cor pulmonale, start Xarelto 15 mg twice daily. Monitor H&H for the next 24 to 48 hours and patient's progress. 2. Right groin hematoma as a complication of procedure yesterday resulting in tear in the vein which was treated with stenting and ballooning. 3. Morbid obesity 4. Recent Covid exposure 5. Diabetes mellitus
--- NOTE | 2021-10-05 09:14 | CA_ITS ---
FINAL REPORT TECHNIQUE: Limited sonographic imaging of the right groin was obtained. CLINICAL HISTORY: S/P PULMONARY EMBOLECTOMY WITH RT GROIN ACCESS,HEMATOMA NOW PRESENT IN RT GROIN-U/S TO ASSESS HEMATOMA FINDINGS: A fluid collection is seen in the right groin which is difficult to fully assessed due to size but measures approximately 8.2 x 7.9 x 5.5 cm favored to represent seroma or chronic hematoma. IMPRESSION: Approximately 8.2 x 7.9 x 5.5 right groin fluid collection, favor seroma or hematoma. Reviewed, Interpreted and Dictated by Chalo Thorne III, MD Transcribed by Wen Eduardo Authenticated by Chalo Thorne III, MD on 10/05/2021 12:54:14 PM [facility]
[2021-10-05 09:24] LABS: MANUAL DIFFERENTIAL MANUAL DIFFERENTIAL (MANUAL DIFF)
[2021-10-05 11:03] LABS: Lymphocytes % 15 % (10-50); Monocytes % 5 % (2-9); Neutrophils % 80 % (42-76); Total Cells Counted 100
[2021-10-05 11:04] LABS: Macrocytosis 1+; Platelet Estimate Normal
--- NOTE | 2021-10-05 11:08 | PC.NURSE ---
pt refused meds at this time r/t fear of choking on them because she has to remain flat at this time
[2021-10-05 12:45] LABS: POC Glucose,Bedside 230 (70-110)
--- NOTE | 2021-10-05 16:44 | PC.NURSE ---
pt has rested in her bed this shift. pt was cleared by cardiology to be able to sit up and be started on Xarelto. pt has endorsed pain in her hip, and asked to be repositioned. pt was advised that she was able to get up to the chair if she wished. pt wanted to remain in bed. dressing was changed on cath site this am at approx 1130. pt hematoma to r groin remains soft and pt denies any pain. lungs are clear, bowels active. nad noted
[2021-10-06] VITALS (31 sets, daily range): BP systolic 60–114; BP diastolic 37–85; PULSE 62–110; RESP 16–37; TEMP 36.1–37.3; O2SAT 90–100; BMI 56.0
--- NOTE | 2021-10-06 03:43 | PC.NURSE ---
Patient has rested well thur this RN shift, no new complaints or concerns at this time.
[2021-10-06 06:55] LABS: POC Glucose,Bedside 219 (70-110)
--- NOTE | 2021-10-06 12:40 | PC.NURSE ---
nursing in to check on patient after tech came out to notify of BP. pt noted to be hypotensive and pale. Dr Franco was on the floor and i notified him of pt symptoms. New orders received.
--- NOTE | 2021-10-06 12:40 | HMH.ACPN2 ---
Internal Medicine - PN: Subj *Date: 10/06/21 *Time: 12:41 Interval history: She appears very pale today. She complains of right hip pain. She has not had blood work yet today. Blood pressure is low. Heart rate is regular. Exam Vital signs and Labs for Last 24 Hours: Temp Pulse Resp BP Pulse Ox 98.3 F 67 20 103/43 L 96 10/06/21 11:56 10/06/21 11:56 10/06/21 11:56 10/06/21 11:56 10/06/21 11:56 Laboratory Results - last 24 hr 10/05/21 12:36: POC Glucose 230 H 10/06/21 06:46: POC Glucose 219 H I & O for Last 24 hours: Intake & Output 10/04/21 10/05/21 10/06/21 10/07/21 11:59 11:59 11:59 12:59 Intake Total 1280 / 1280 540 / 540 Output Total 1275 / 1275 450 / 450 Balance 5 / 5 90 / 90 Weight 349 lb 15.988 oz 360 lb 356 lb 9.6 oz - Constitutional no acute distress (Appears pale.) - *Routine HEENT Exam Head: Present: normocephalic Eye: Present: EOMI, PERRL ENT: Present: mucous membranes moist - *Routine Neck Exam Present: supple. Absent: JVD, lymphadenopathy - *Routine Respiratory Exam Present: CTA bilaterally. Absent: respiratory distress - *Routine Cardiovascular Exam Present: RRR - *Routine Abdominal Exam Present: soft, normoactive bowel sounds, obese. Absent: tenderness - *Routine Extremities Exam Present: edema. Absent: cyanosis, clubbing - *Routine Skin Exam Present: pallor, warm. Absent: rash - *Routine Neurological Exam Present: alert, oriented X3 Assessment and Plan (1) Pulmonary embolism with acute cor pulmonale Status: Acute Category: Medical Code(s): I26.09 - Other pulmonary embolism with acute cor pulmonale (2) Pulmonary embolism, bilateral Status: Acute Category: Medical Code(s): I26.99 - Other pulmonary embolism without acute cor pulmonale (3) Exposure to COVID-19 virus Status: Acute Category: Medical Code(s): Z20.822 - Contact with and (suspected) exposure to COVID-19 (4) Diabetes mellitus Status: Chronic Category: Medical Code(s): E11.9 - Type 2 diabetes mellitus without complications (5) HTN (hypertension) Status: Chronic Category: Medical Code(s): I10 - Essential (primary) hypertension (6) Obesity, morbid, BMI 50 or higher Problem details: BMI 58 Status: Chronic Category: Medical Code(s): E66.01 - Morbid (severe) obesity due to excess calories - Assessment and plan all Dx Assessment and Plan for all problems:: CBC and Chem-7 stat.
--- NOTE | 2021-10-06 13:00 | PC.NURSE ---
new orders for blood obtained due to pt having low h and h. pt continues to be symptomatic. Blood initiated and Dr. Franco wants pt to be transferred to Stepdown for closer monitoring. levo drip initiated by Skye ENCISO. report given
[2021-10-06 13:05] LABS: Basophils # 0.1 K/mm3 (0-0.2); Basophils % 0.6 % (0.1-2.0); Eosinophils # 0.1 K/mm3 (0.0-0.4); Eosinophils % 0.4 % (0.1-12.0); Hematocrit 25.2 % (37.0-47.0); Hemoglobin 8.2 g/dL (12.2-16.2); Lymphocytes # 3.3 K/mm3 (0.7-4.5); Lymphocytes % 19.9 % (10-50); Mean Corpuscular HGB Conc 32.5 g/dL (31.8-35.4); Mean Corpuscular Hemoglobin 31.8 pg (27.0-31.2); Mean Platelet Volume 8.9 fl (7.4-10.4); Monocytes % 5.9 % (1.7-9.3); Neutrophils # 12.3 K/mm3 (1.8-7.8); Neutrophils % 73.3 % (37.0-80.0); Platelet Count 230 K/mm3 (142-424); Red Blood Count 2.57 M/mm3 (4.20-5.40); Red Cell Distribution Width 14.9 % (11.5-17.5); White Blood Count 16.7 K/mm3 (4.8-10.8)
[2021-10-06 13:10] LABS: MANUAL DIFFERENTIAL MANUAL DIFFERENTIAL (MANUAL DIFF)
[2021-10-06 13:20] LABS: Chloride 98 mmol/L (98-107)
[2021-10-06 13:21] LABS: Potassium 5.3 mmoL/L (3.5-5.1); Sodium 125 mmol/L (136-145)
[2021-10-06 13:24] LABS: Anion Gap 9.3 mEq/L (5-15); Calcium 8.4 mg/dl (8.4-10.2); Carbon Dioxide 23 mmol/L (22.0-30.0); Glucose 238 mg/dl (74-100)
[2021-10-06 13:38] LABS: Blood Urea Nitrogen 33 mg/dl (7-17); Creatinine Clearance Estimated 32 mL/min (50-200); Estimated Glomerular Filt Rate 29 ml/min (>60); GFR (African American) 35 ML/MIN (>60)
[2021-10-06 13:42] LABS: Lymphocytes % 18 % (10-50); Monocytes % 5 % (2-9); Neutrophils % 77 % (42-76); Nucleated Red Blood Cells 2; Platelet Estimate Normal; Total Cells Counted 100
--- NOTE | 2021-10-06 14:10 | PC.NURSE ---
Received report from FERNIE Hurtado. Pt moving to sd at this time. Levo gtt at 14 mcg/min at this time.
--- NOTE | 2021-10-06 14:30 | PC.NURSE ---
pt noted to be more alert @ this time. She is tolerating blood administration well and is now transferred to SDU
--- NOTE | 2021-10-06 14:59 | CT_ITS ---
PROCEDURE INFORMATION: Exam: CT Abdomen Without Contrast Exam date and time: 10/06/2021 2:59 PM Age: 60 years old Clinical indication: Other: Bleeding retroperitoneal; Additional info: Retroperitoneal bleed TECHNIQUE: Imaging protocol: Computed tomography images of the abdomen without contrast. Radiation optimization: All CT scans at this facility use at least one of these dose optimization techniques: automated exposure control; mA and/or kV adjustment per patient size (includes targeted exams where dose is matched to clinical indication); or iterative reconstruction. [facility]22/[facility] 6:16 AM. Report from a right groin ultrasound dated 10/05/2021 provided additional history of pulmonary embolectomy with right groin access. FINDINGS: Lungs: Regions of parenchymal scarring at both lung bases. Liver: Normal. No mass. Gallbladder and bile ducts: Sludge and stones are now present within the gallbladder. Pancreas: Normal. No ductal dilation. Spleen: Evidence of splenic granulomas. Findings unchanged. Adrenals: Normal. No mass. Kidneys and ureters: There is superior displacement of the right kidney. There is mild atrophy of both kidneys which is new compared with the 2019 examination. Stomach and bowel: There is mild gaseous distension of the bowel loops. There are scattered colonic diverticula. No findings to suggest diverticulitis. Intraperitoneal space: There is a prominent fluid collection in the right retroperitoneum which extends from the level of roof of the right acetabulum superiorly in the right pericolic gutter to the level of the right perihepatic and perinephric space, to the approximate level of the T12 vertebral body. Lymph nodes: Unremarkable. No enlarged lymph nodes. Vasculature: A stent is demonstrated in the right common iliac artery. Findings new compared with the 2019 examination. Bones/joints: Unremarkable. No acute fracture. No dislocation. Soft tissues: There is a large poorly defined region of soft tissue edema in the right groin. This is heterogeneous in density and is most compatible with a resolving subcutaneous hematoma. No well-defined mass is demonstrated. This measures approximately 9 cm transversely by approximately 6 cm in AP dimensions. Findings demonstrated on series 5, image number 125. IMPRESSION: 1. Demonstration of extensive retroperitoneal collection extending from the level of of roof of the right acetabulum superiorly in the right pericolic gutter to the level of the right perihepatic and perinephric space, to the approximate level of the T12 vertebral body. 2. Findings compatible with large retroperitoneal hematoma. 3. Poorly defined approximate 9 x 6 cm resolving subcutaneous hematoma involving the right inguinal region. Findings correspond with the described abnormality on the recent right groin ultrasound report dated 10/05/2021. Actual images not available for direct review. 4. Demonstration of stent in the right common iliac artery. 5. Associated superior displacement of the right kidney. 6. Bilateral renal atrophy. Findings new since 2019 examination. 7. Preliminary results communicated to Nicole Soni RN at approximately 3:38 p.m.
--- NOTE | 2021-10-06 17:09 | PC.NURSE ---
Spoke with Dr. Roque in RE to pt's CT scan and he gave NNO. Also, spoke with Dr. Trujillo in RE to pt's ct scan and he gave NNO, just stated to keep giving her blood for a total of 4 units.
--- NOTE | 2021-10-06 17:21 | PC.NURSE ---
Levo gtt at 20 MCG/MIN at this time.
[2021-10-06 19:39] LABS: Hematocrit 34.2 % (37.0-47.0)
--- NOTE | 2021-10-06 19:45 | PC.NURSE ---
notified MD Trujillo of pt's critical potassium of 7.9, asked for stat redraw and to give 80mg IV lasix 2005-lab attempting to redraw labs 2007-80 mg IV lasix given 2029-pt made 20mL pink tinged urine with sediment 2051-notified MD Trujillo of pt's critical potassium of 6.7 after stat redraw and that glucose was 407 and no sliding scale insulin ordered; ordered 60mL Kayexalate, 20units IV regular insulin, 10units SQ regular insulin, to recheck a fingerstick an hour after give insulin, and to give fourth unit prbc 2053-pt c/o nausea, 4mg zofran given 2103-D5 1/2NS at 75mL/hr started 2105-insulin given, pt still nauseous and holding off on kayexalate until pt not so nauseous 2111-pt very restless and in 05/06 pain in abdomen per pt report, 4mg morphine given for pain 2124-obtained fourth unit prbc and about to give unit when had witnessed decline, pt obtunded and agonally breathing, rapid red called and another RN returned unit prbc to lab [id number] placed on pt at 100%, zoll pads placed on pt and monitoring via zoll initiated 2130-ED physician Jeffy to bedside 2132-bp 81/44, 70HR, 22 RR, rectal temp 99.1 2134-Will RT bagging pt, preparing for intubation 2136-160 succinylcholine and 40 of etomidate given for intubation 2138-updated MD Roque of pt's condition and informed MD that last unit prbc had stopped at 1914, stated was not transfusion reaction 2139-1L NS bolus on pressure bag started; pt intubation complete, pt has 7.5 OETT 25 at the lip 2141-bp 56/28, HR 72, pt being bagged through OETT 2142-xray being completed to check OETT placement 2149-vasopressin drip started as second pressor for hypotension 2150-time out called for line placement, MD Bardales attempting to place central line and/or aterial line 2251-MD placing left IJ triple lumen deep line, verbally ordered 100mcg fentanyl and 2mg versed for placement as pt's sedation wearing off, 100mcg fentanyl and 2mg versed given while MD at bedside 230-central line placed in left IJ 230-pt's HR decreasing, MD ordered atropine to be given 231-pt with asystole, 1mg atropine given, cpr initiated 2312-1mg epinephrine given 2313-pulse check, asystole, cpr resumed 2314-1mg epi given 2315-pulse check, asystole, cpr resumed 2317-2mL calcium chloride and 1mg epi given, pulse check, PEA, cpr resumed 2320-1mg epi given, pulse check, charged zoll per verbal order MD Bardales, delivered shock, cpr resumed 2322-2g Magnesium given, pulse check ROSC achieved pt in SVT on monitor 2324-1 amp sodium bicarb given 2328-chest x ray completed to check line placement and 8mL calcium chloride given per verbal order MD Bardales at bedside 2334-pt's HR decreasing steadily, pt in asystole, cpr resumed 2336-1mg atropine given 2337-pulse check, asystole, cpr resumed 2338-1mg epi given 2339-pulse check, asystole, time of called at 2339; pt ; MD Bardales to notify family
[2021-10-06 19:47] LABS: Hemoglobin 11.1 g/dL (12.2-16.2)
[2021-10-06 19:50] LABS: Anion Gap 15.9 mEq/L (5-15); Blood Urea Nitrogen 37 mg/dl (7-17); Calcium 8.4 mg/dl (8.4-10.2); Carbon Dioxide 15 mmol/L (22.0-30.0); Chloride 105 mmol/L (98-107); Creatinine Clearance Estimated 34 mL/min (50-200); Estimated Glomerular Filt Rate 31 ml/min (>60); GFR (African American) 37 ML/MIN (>60); Glucose 376 mg/dl (74-100); Sodium 128 mmol/L (136-145)
[2021-10-06 19:55] LABS: Potassium 7.9 mmoL/L (3.5-5.1)
[2021-10-06 20:28] LABS: Basophils # 0.2 K/mm3 (0-0.2); Basophils % 0.7 % (0.1-2.0); Eosinophils # 0.2 K/mm3 (0.0-0.4); Eosinophils % 0.8 % (0.1-12.0); Hematocrit 33.3 % (37.0-47.0); Hemoglobin 10.9 g/dL (12.2-16.2); Lymphocytes # 5.1 K/mm3 (0.7-4.5); Lymphocytes % 19.6 % (10-50); Mean Corpuscular HGB Conc 32.7 g/dL (31.8-35.4); Mean Corpuscular Hemoglobin 29.6 pg (27.0-31.2); Mean Corpuscular Volume 90.5 fl (81-99); Mean Platelet Volume 8.8 fl (7.4-10.4); Monocytes # 1.7 K/mm3 (0.1-1.0); Monocytes % 6.6 % (1.7-9.3); Neutrophils # 18.9 K/mm3 (1.8-7.8); Neutrophils % 72.4 % (37.0-80.0); Platelet Count 177 K/mm3 (142-424); Red Blood Count 3.68 M/mm3 (4.20-5.40); Red Cell Distribution Width 17.2 % (11.5-17.5)
[2021-10-06 20:31] LABS: White Blood Count 26.1 K/mm3 (4.8-10.8)
[2021-10-06 20:37] LABS: Anion Gap 13.7 mEq/L (5-15); Blood Urea Nitrogen 35 mg/dl (7-17); Calcium 8.1 mg/dl (8.4-10.2); Carbon Dioxide 14 mmol/L (22.0-30.0); Chloride 103 mmol/L (98-107); Creatinine Clearance Estimated 32 mL/min (50-200); Estimated Glomerular Filt Rate 29 ml/min (>60); GFR (African American) 35 ML/MIN (>60); Sodium 124 mmol/L (136-145)
[2021-10-06 20:39] LABS: Potassium 6.7 mmoL/L (3.5-5.1)
[2021-10-06 20:40] LABS: Glucose 407 mg/dl (74-100)
--- NOTE | 2021-10-06 21:37 | XR_ITS ---
PROCEDURE INFORMATION: Exam: XR Chest Exam date and time: 10/06/2021 9:37 PM Age: 60 years old Clinical indication: Device placement; Ett placement (vent status); Additional info: Post intubation TECHNIQUE: Imaging protocol: XR of the chest. Views: 1 view. COMPARISON: CR XR CHEST PORTABLE 10/04/2021 5:08 AM FINDINGS: Tubes, catheters and devices: Endotracheal tube is seen with its tip in the proximal right main stem bronchus and it needs to be pulled back 3 cm. Lungs: Low lung volumes. Scattered atelectasis in the left lung. Pleural spaces: Unremarkable. No pleural effusion. No pneumothorax. Heart/Mediastinum: Unremarkable. No cardiomegaly. Bones/joints: Unremarkable. IMPRESSION: Endotracheal tube is seen with its tip in the proximal right main stem bronchus and it needs to be pulled back 3 cm.
--- NOTE | 2021-10-06 21:54 | PC.NURSE ---
At 1810, this RN called and spoke w/ Dr. Trujillo after calling [facility] to see if there was a reversal agent for xarelto, and there wasn't any available here. Also, this RN informed Dr. Trujillo that pt was declining and asked if he wanted coag's or any other orders on pt and he stated no he just wanted blood and to apply the lobo hugger, rectal temp was 97.8, although pt was cool to touch and petechia. He wanted the total of 4 units that was previously ordered and an additional 4 units given quickly of blood. This RN verified this w/ Dr. Trujillo. Also called and spoke with Dr. Roque certified personal finance counselor to give him update and requested coags, labs and lasix. He stated no lasix at that time but to check a H&H and bmp. Noted. Report given to Martha Leyva RN.
--- NOTE | 2021-10-06 21:59 | PC.NURSE ---
ART LINE INSERTION
--- NOTE | 2021-10-06 23:41 | XR_ITS ---
PROCEDURE INFORMATION: Exam: XR Chest Exam date and time: 10/06/2021 11:41 PM Age: 60 years old Clinical indication: Device placement; Other: Central line placment; Additional info: Central line placement TECHNIQUE: Imaging protocol: XR of the chest. Views: 1 view. COMPARISON: CR XR CHEST PORTABLE 10/06/2021 9:38 PM FINDINGS: Tubes, catheters and devices: Endotracheal tube is seen with its tip above the renee. Left IJ central line tip in the cavoatrial region. Lungs: Low lung volumes. In the lung bases there is atelectasis. Pleural spaces: Unremarkable. No pleural effusion. No pneumothorax. Heart/Mediastinum: Cardiomegaly. Bones/joints: Unremarkable. IMPRESSION: Endotracheal tube is seen with its tip just above the renee. Left IJ central line tip in the cavoatrial region.
[2021-10-07 06:28] LABS: POC Glucose,Bedside 446 (70-110)
[2021-10-07 06:28] LABS: POC Glucose,Bedside 388 (70-110)
--- NOTE | 2021-10-08 21:39 | [facility].DCSUM ---
General - General Admission date:: 10/04/21 Discharge date: 10/06/21 HPI HPI: 60-year-old female with past medical history of obesity, diabetes, hypertension, obesity, fatty liver disease is presented to the ED with shortness of breath, intermittent episodes of chest pain. Patient states that beginning last night she began to experience shortness of breath, this is worse when she got up to use the bathroom overnight. States that her shortness of breath is worse with exertion. Currently she denies fevers any chest pain. No prior history of CAD, coronary angiography, CHF. No prior history of DVT or PE. She is not currently on any blood thinners. She denies abdominal pain. Admits to mild nausea, no vomiting episodes. No diarrhea or change in her bowel habits. She is still urinating appropriately. States that her legs are chronically swollen, has previously had cellulitis in her right leg. No worsening erythema or tenderness over her bilateral calfs. She used her albuterol inhaler prior to arrival, no other medications. Patient is speaking full sentences, vital signs are stable, oxygen saturation 96% on room air. Of note patient was Covid positive on 08/29/2021. (The above per Dr. Carson, ) The patient does states she has had some swelling in her legs over the past few weeks and her calf muscles have been tender. She has had some mild chest tightness along with the shortness of breath, which has gotten progressively worse. A CTA was done in the emergency room and was positive for pulmonary emboli involving the distal right and left main pulmonary arteries with extension into lobar and segmental branches bilaterally. There was some mild dilation of the right ventricle suggesting right heart strain and faint groundglass opacities in the periphery of the lungs reflecting a residual pneumonia. She will be admitted and cardiology will be consulted. Hospital Course Hospital Course: The patient was seen in consultation by cardiology and their plan was to take her for pulmonary artery embolectomy. They also ordered venous Dopplers of her lower extremities and an echo. The venous Doppler showed a superficial thrombosis in the right lesser saphenous vein but no acute DVTs. The patient was taken to the [facility], but a vessel was torn in her right groin during the embolectomy and the vessel had to be repaired and the procedure had to be stopped. She had a significant hematoma develop on the right side. Her heparin had to be stopped and ice and a sandbag was applied to the right groin. She had an arterial ultrasound of the groin which showed an 8.2 x 7.9 x 5.5 right groin fluid collection favoring a seroma or hematoma. In light of the pulmonary emboli, the patient was restarted on heparin. Her hemoglobin dropped from 15-11, therefore Dr. Trujillo did not want to try to perform a pulmonary embolectomy again. He recommended starting Xarelto 15 mg twice daily and monitoring the patient for 24 to 48 hours before discharging her home. By 10/06/2021, the patient was pale and complained of right hip pain. Her blood pressure was low, but her heart rate was regular. Blood work was ordered stat and her hemoglobin was 8.2. A blood transfusion was ordered and Dr. Trujillo recommended starting the patient on Levophed for hypotension with her diastolic currently below 80. Xarelto was discontinued and IV fluids were initiated at 200 cc an hour. She also received a 200 cc bolus. She was transferred to stepdown and started on a Levophed drip. The patient's potassium came back critical at 7.[address] Trujillo was contacted and ordered 80 mg of IV Lasix. The patient only made 20 mL of pink-tinged urine with sediment. Her blood work was redrawn and her potassium was 6.7 and her glucose was 407. Kayexalate was ordered and she was given 20 units of IV regular insulin and 10 units of subcu regular insulin. She did began complaining of nausea and was given
== END 2021-10-06 23:39 | disposition expired | DRG 167 ==
LOC: ER 06:34 → 2ND 07:29
PROVIDERS: Family Medicine; Internal Medicine; Admitting Provider Family Medicine; Emergency Provider Emergency Medicine; PCP Family Medicine; Visit Provider Family Medicine
PROC: B31T1ZZ Fluoroscopy of Left Pulmonary Artery using Low Osmolar Contrast (ICD-10-PCS; principal; 2021-10-04 09:00)
DX: I26.99 Other pulmonary embolism without acute cor pulmonale (principal); Z68.43 Body mass index [BMI] 50.0-59.9, adult; I97.638 Postprocedural hematoma of a circulatory system organ or structure following other circulatory system procedure; I97.52 Accidental puncture and laceration of a circulatory system organ or structure during other procedure; Z20.822 Contact with and (suspected) exposure to COVID-19; E11.9 Type 2 diabetes mellitus without complications; I10 Essential (primary) hypertension; E66.01 Morbid (severe) obesity due to excess calories; E78.5 Hyperlipidemia, unspecified; M19.90 Unspecified osteoarthritis, unspecified site; E03.9 Hypothyroidism, unspecified; Y84.9 Medical procedure, unspecified as the cause of abnormal reaction of the patient, or of later complication, without mention of misadventure at the time of the procedure; Y84.8 Other medical procedures as the cause of abnormal reaction of the patient, or of later complication, without mention of misadventure at the time of the procedure; K74.60 Unspecified cirrhosis of liver; Z87.891 Personal history of nicotine dependence
CPT/HCPCS: 36014; 36415; 37228; 71045; 71275; 74150; 75743; 80048; 80053; 81001; 82962; 83880; 84484; 85007; 85014; 85018; 85025; 85347; 85378; 85610; 85730; 86850; 93005; 93306; 93926; 93970; 96365; 96375; 99152; 99153; 99285; C1725; C1751; C1769; C1874; C1894; C9803; J1644; J2405; J2720; P9016; Q9967; U0003; U0005